=== PATIENT | female | born 1940 | race Caucasian/White ===

== ENCOUNTER 2017-06-26 13:18 | Outpatient (CLI) | payer MEDICARE, OTHER ==
--- NOTE | 2017-06-27 15:39 | Mammography Report ---
DIGITAL SCREENING MAMMOGRAM: 06/26/2017 CLINICAL INDICATION: A 76-year-old, for screening. COMPARISON: 09/2014, 03/2012, 05/2009. TECHNIQUE: Routine CC and MLO projections were obtained of the breasts. FINDINGS: The breasts again demonstrate heterogeneously dense fibroglandular parenchyma bilaterally. Coarse and punctate, typically benign calcifications are present. No suspicious masses, clustered microcalcifications, or regions of architectural distortion are identified. IMPRESSION: BENIGN FINDINGS. RECOMMENDATION: ROUTINE ANNUAL SCREENING UNLESS OTHERWISE CLINICALLY INDICATED. BIRADS CATEGORY 2-BENIGN FINDINGS. STANDARD QUALIFYING STATEMENTS: 1. This examination was reviewed with the aid of Computer-Aided Detection (CAD). 2. A negative or benign imaging report should not delay biopsy if clinically suspicious findings are present. Consider surgical consultation if warranted. More than 5% of cancers are not identified by imaging. 3. Dense breasts may obscure an underlying neoplasm. TD: 06/27/2017 15:39
== END 2017-06-26 13:19 | disposition home or self-care (01) ==
LOC: DI 13:18
PROVIDERS: ATTEND Internal Medicine
DX: Z12.31 Encounter for screening mammogram for malignant neoplasm of breast (principal)
CPT/HCPCS: 77067

== ENCOUNTER 2017-07-02 09:36 | Outpatient (CLI) | payer MEDICARE, OTHER ==
--- NOTE | 2017-07-02 12:59 | XRAY Report ---
LEFT HIP AND PELVIS: 07/02/2017 CLINICAL INDICATION: Pain. FINDINGS: Frontal view of the hips and pelvis and frogleg lateral view of the left hip demonstrate no evidence of fracture or dislocation. The joint spaces are preserved. No radiopaque foreign body is seen in the soft tissues. IMPRESSION: NORMAL LEFT HIP AND PELVIS. TD: 07/02/2017 12:58
== END 2017-07-02 09:37 | disposition home or self-care (01) ==
LOC: DI 09:36
PROVIDERS: ATTEND Internal Medicine
DX: R10.2 Pelvic and perineal pain (principal)

== ENCOUNTER 2017-08-07 06:58 | Day surgery (SDC) | payer MEDICARE, OTHER ==
[~2017-08-07 06:58] MED LIST: CYCLOPENTOLATE 1% OPHTH DROPS 2 ML ONE; KETOROLAC 0.45% OPHTH DROPS ONE; PHENYLEPHRINE 2.5% OPHTH 2 ML DROPS ONE; PROPARACAINE 0.5% OPHTH DROPS 15 ML ONE
[2017-08-07] MEDS ORDERED: KETOROLAC 0.45% OPHTH DROPS RIGHTEYE ONE (07:12)
[2017-08-07] MEDS ORDERED: PROPARACAINE 0.5% OPHTH DROPS 15 ML RIGHTEYE ONE ×2 (07:13→08:21)
[2017-08-07] MEDS ORDERED: CYCLOPENTOLATE 1% OPHTH DROPS 2 ML RIGHTEYE ONE (07:14)
[2017-08-07] MEDS ORDERED: PHENYLEPHRINE 2.5% OPHTH 2 ML DROPS RIGHTEYE ONE (07:14)
[2017-08-07] MEDS ORDERED: BRIMONIDINE 0.2% OPHTH DROPS 5 ML ONE (07:21)
[2017-08-07] MEDS ORDERED: TIMOLOL 0.5% OPHTH DROPS ONE (07:21)
[2017-08-07] MEDS ORDERED: BSS/LIDOCAINE/EPINEPHRINE 1 ML SYRINGE ONE (07:22)
[2017-08-07] MEDS ORDERED: LACTATED RINGERS 1,000 ML IV ONE (07:24)
[2017-08-07] MEDS ORDERED: MIDAZOLAM 2 MG/2 ML VIAL IVP ONE (08:05)
[2017-08-07] MEDS ORDERED: BRIMONIDINE 0.2% OPHTH DROPS 5 ML OPTH ONE (08:19)
[2017-08-07] MEDS ORDERED: EPINEPHrine 1 MG/ML AMP IR ONE (08:20)
[2017-08-07] MEDS ORDERED: TIMOLOL 0.5% OPHTH DROPS OPTH ONE (08:20)
[2017-08-07] MEDS ORDERED: CHONDR SULF/HYALURONATE SYRINGE IO ONE (08:20)
[2017-08-07] MEDS ORDERED: BSS/LIDOCAINE/EPINEPHRINE 1 ML SYRINGE IO ONE (08:20)
[2017-08-07] MEDS ORDERED: TRIAMCIN/MOXIFLOX/VANCO 1 ML VIAL IO ONE (08:21)
--- NOTE | 2017-08-07 08:54 | OPERATIVE REPORT ---
DATE OF SERVICE: 08/07/2017 Physician: Kevin Lindo MD PREOPERATIVE DIAGNOSIS: Visually significant cataract, right eye. This was her first cataract surgery. POSTOPERATIVE DIAGNOSIS: Visually significant cataract, right eye. This was her first cataract surgery. NAME OF PROCEDURE: Phacoemulsification with posterior chamber intraocular lens implant, right eye. SURGEON: Kevin Lindo MD ANESTHESIA: Monitored anesthesia care. COMPLICATIONS: None. OPERATIVE INDICATIONS: This is a 76-year-old woman with progressive vision loss in the right eye due to 2+ nuclear sclerotic, 2 to 3+ cortical and trace posterior subcapsular cataract. Best corrected visual acuity was 20/25 with glare to 20/100 in the right eye. Indications for surgery were difficulty seeing words on the computer screen, difficulty reading, difficulty seeing street signs, difficulty driving in bright light or at night, difficulty driving at night because of headlights from other vehicles and/or street lights. She was consented at length concerning the risks and benefits of cataract surgery, after which she expressed a desire to proceed with surgery. OPERATIVE PROCEDURE: Patient was taken into OR #3 and placed under monitored anesthesia care. A surgical timeout was conducted confirming correct patient, correct procedure and correct surgical site. She was given topical anesthesia, and then prepped and draped in the usual sterile fashion. The eye was entered at the 12 and 9 o'clock positions. Intracameral Shugarcaine was injected into the anterior chamber, followed by Viscoat. A continuous-tear curvilinear capsulorrhexis was performed. The nucleus was hydrodissected and phacoemulsified. The cortex was evacuated using automated infusion and aspiration. Provisc was injected in the capsular bag and a 23.0 diopter intraocular lens was inserted into the bag, approximately 0.8 mL of a mixture of triamcinolone and moxifloxacin was injected subconjunctivally in the superior quadrant for infection and inflammation prophylaxis. I and A was used to evacuate the viscoelastic material. The eye was inflated to physiologic pressure using balanced salt solution and found to be watertight. Patient was taken from the operating room in good condition and given postop instructions. TD: 08/07/2017 08:52
[2017-08-07 08:59] VITALS: BP 121/54
== END 2017-08-07 06:59 | disposition home or self-care (01) ==
LOC: SDS 06:58
PROVIDERS: ATTEND Ophthalmology
PROC: 08RJ3JZ Replacement of Right Lens with Synthetic Substitute, Percutaneous Approach (ICD-10-PCS; principal; 2017-08-07 08:00)
DX: H25.811 Combined forms of age-related cataract, right eye (principal)
CPT/HCPCS: 66984; A9270; J3490; J7120; V2632

== ENCOUNTER 2017-09-11 09:54 | Day surgery (SDC) | payer MEDICARE, OTHER ==
[~2017-09-11 09:54] MED LIST changes: +BRIMONIDINE 0.2% OPHTH DROPS 5 ML ONE; +BSS/LIDOCAINE/EPINEPHRINE 1 ML SYRINGE ONE; +EPINEPHrine 1 MG/ML AMP ONE; +TIMOLOL 0.5% OPHTH DROPS ONE; +TRIAMCIN/MOXIFLOX OPHTHALMIC 0.6 ML VIAL IO ONE
[2017-09-11] MEDS ORDERED: LACTATED RINGERS 500 ML IV ONE ×2 (10:10→11:18)
[2017-09-11] MEDS ORDERED: PROPARACAINE 0.5% OPHTH DROPS 15 ML LEFTEYE ONE ×2 (10:20→11:20)
[2017-09-11] MEDS ORDERED: KETOROLAC 0.45% OPHTH DROPS LEFTEYE ONE (10:20)
[2017-09-11] MEDS ORDERED: PHENYLEPHRINE 2.5% OPHTH 2 ML DROPS LEFTEYE ONE (10:20)
[2017-09-11] MEDS ORDERED: CYCLOPENTOLATE 1% OPHTH DROPS 2 ML LEFTEYE ONE (10:20)
[2017-09-11] MEDS ORDERED: MIDAZOLAM 2 MG/2 ML VIAL IVP ONE (11:11)
[2017-09-11] MEDS ORDERED: VANCOMYCIN OPHTHALMI 8MG/0.8ML 8 MG/0.8 ML SYRINGE IO ONE (11:20)
[2017-09-11] MEDS ORDERED: TIMOLOL 0.5% OPHTH DROPS OPTH ONE (11:20)
[2017-09-11] MEDS ORDERED: CHONDR SULF/HYALURONATE SYRINGE IO ONE (11:20)
[2017-09-11] MEDS ORDERED: BRIMONIDINE 0.2% OPHTH DROPS 5 ML OPTH ONE (11:20)
[2017-09-11] MEDS ORDERED: BSS/LIDOCAINE/EPINEPHRINE 1 ML SYRINGE IO ONE (11:20)
[2017-09-11] MEDS ORDERED: EPINEPHrine 1 MG/ML AMP IR ONE (11:20)
[2017-09-11 11:39] VITALS: BP 120/53
--- NOTE | 2017-09-11 17:07 | OPERATIVE REPORT ---
DATE OF SERVICE: 09/11/2017 Physician: Kevin Lindo MD PREOPERATIVE DIAGNOSIS: Visually significant cataract, left eye. Cataract surgery was performed on the right eye on 08/07/2017. POSTOPERATIVE DIAGNOSIS: Visually significant cataract, left eye. Cataract surgery was performed on the right eye on 08/07/2017. PROCEDURE: Phacoemulsification with posterior chamber intraocular lens implant, left eye. SURGEON: Kevin Lindo MD ANESTHESIA: Monitored anesthesia care. COMPLICATIONS: None. OPERATIVE INDICATIONS: This is a 71-year-old woman with progressive vision loss in the left eye due to 2+ nuclear sclerotic, 3+ cortical and trace posterior subcapsular cataract. Best corrected visual acuity was 20/30 with glare to 20/200 in the left eye. Indications for surgery are overall decrease in vision, difficulty seeing words on the computer screen, difficulty reading, difficulty driving at night because of head lights from other vehicles, and difficulty with glare or bright lights in any situation. She was consented at length concerning the risks and benefits of cataract surgery. Afterward, she expressed a desire to proceed with surgery. OPERATIVE PROCEDURE: The patient was taken into OR #3 and placed under monitored anesthesia care. A surgical timeout was conducted confirming correct patient, correct procedure, and correct surgical site. She was given topical anesthesia and prepped and draped in the usual sterile fashion. The eye was entered at the 6 and 3 o'clock positions. Intracameral Shugarcaine was injected into the anterior chamber, followed by Viscoat. A continuous-tear curvilinear capsulorrhexis was performed. The nucleus was hydrodissected and phacoemulsified. The cortex was evacuated using automated infusion aspiration. Provisc was injected in the capsular bag and a 22.5 diopter intraocular lens was inserted into the bag. Approximately 0.8 mL of a mixture of triamcinolone and moxifloxacin and vancomycin was injected subconjunctivally in the superior quadrant for infection and inflammation prophylaxis. I and A was used to evacuate the viscoelastic materials. The eye was inflated to physiologic pressure using balanced salt solution and found to be watertight. The patient was taken from the operating room in good condition and given postop instructions. TD: 09/11/2017 11:37
== END 2017-09-11 09:55 | disposition home or self-care (01) ==
LOC: SDS 09:54
PROVIDERS: ATTEND Ophthalmology
PROC: 08RK3JZ Replacement of Left Lens with Synthetic Substitute, Percutaneous Approach (ICD-10-PCS; principal; 2017-09-11 11:00)
DX: H25.812 Combined forms of age-related cataract, left eye (principal)
CPT/HCPCS: 66984; A9270; J3490; V2632

== ENCOUNTER 2018-01-10 13:43 | Emergency (ER) | payer MEDICARE, OTHER ==
[2018-01-10] MEDS ORDERED: BACITRACIN OINT TOP STA (14:23)
[2018-01-10] MEDS ORDERED: BACITRACIN OINT TOP ONE (14:24)
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
[2018-01-10 14:50] VITALS: BP 149/63
== END 2018-01-10 14:49 | disposition home or self-care (01) ==
LOC: ED 13:43
DX: T22.111A Burn of first degree of right forearm, initial encounter (principal); T31.0 Burns involving less than 10% of body surface; X10.1XXA Contact with hot food, initial encounter; Y93.G3 Activity, cooking and baking; Y92.009 Unspecified place in unspecified non-institutional (private) residence as the place of occurrence of the external cause
CPT/HCPCS: 99282; A9270

== ENCOUNTER 2018-04-04 07:44 | Outpatient (CLI) | payer MEDICARE, OTHER ==
--- NOTE | 2018-04-06 08:24 | CT Report ---
Reason: SINUS PAIN Procedure Date: 04/04/2018 Accession Number: [id number] / [id number] Procedure: CT - Sinuses CPT Code: FULL RESULT: EXAM: CT SINUS EXAM DATE: 04/04/2018 07:52 AM. HISTORY: 77-year-old woman with sinus pain. COMPARISONS: SINUSES 09/17/2013 8:24 AM. TECHNIQUE: Routine multi-axial CT imaging performed through the sinuses. Iodinated IV contrast: None. Reconstructions: Multiplanar reformats. In accordance with CT protocol optimization, one or more of the following dose reduction techniques were utilized for this exam: automated exposure control, adjustment of mA and/or KV based on patient size, or use of iterative reconstructive technique. FINDINGS: RIGHT Frontal: Normal. Ethmoid: Normal. Maxillary: Normal. Sphenoid: Normal. Drainage Pathways: The frontal recess, ostiomeatal complex and sphenoethmoidal recess are patent and normal. LEFT Frontal: Normal. Ethmoid: Normal. Maxillary: Normal. Sphenoid: Normal. Drainage Pathways: The frontal recess, ostiomeatal complex and sphenoethmoidal recess are patent and normal. Nasal Cavity: Normal. No mass or significant anatomic abnormality evident. Osseous Structures: Unremarkable. Orbits: Unremarkable except for bilateral lens replacement surgery. Other: None. IMPRESSION: 1. Normal Sinus CT. No sinusitis. RADIA
== END 2018-04-04 07:45 | disposition home or self-care (01) ==
LOC: DI 07:44
PROVIDERS: ATTEND Internal Medicine
DX: R51 Headache (principal); J34.9 Unspecified disorder of nose and nasal sinuses
CPT/HCPCS: 70486

== ENCOUNTER 2018-04-14 09:14 | Outpatient (CLI) | payer MEDICARE, OTHER ==
[2018-04-14] MEDS ORDERED: ACETAMINOPHEN 1,000 MG/100 ML 100 ML IV ONE (15:59)
== END 2018-04-14 09:15 | disposition critical access hospital (66) ==
LOC: EMS 09:14
PROVIDERS: ATTEND Surgery
DX: M25.552 Pain in left hip (principal); W01.0XXA Fall on same level from slipping, tripping and stumbling without subsequent striking against object, initial encounter; Y93.A3 Activity, aerobic and step exercise; Y92.39 Other specified sports and athletic area as the place of occurrence of the external cause
CPT/HCPCS: A0425; A0427

== ENCOUNTER 2018-04-14 09:39 | Inpatient (IN) | payer MEDICARE, OTHER ==
--- NOTE | 2018-04-14 09:49 | ED Physician Documentation ---
History of Present Illness - Stated complaint Stated Complaint: L HIP PX - Additonal information Additional information: hx from pt 77 female healthy no meds was at [facility] and slipped and fell on her left hip no head or neck injury no CP or AP pain to left hip and not able to walk BIBA Review of Systems Cardiac: denies: Chest pain / pressure GI: denies: Abdominal Pain Musculoskeletal: reports: Joint pain. 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 HEENT: Cataracts - Present Medications Home Medications: Ambulatory Orders Medication Instructions Recorded Confirmed Multivitamin [Multiple Vitamins] 1 tab PO DAILY 04/14/18 04/14/18 - Allergies Allergies/Adverse Reactions: Allergies Allergy/AdvReac Type Severity Reaction Status Date / Time No Known Drug Allergies Allergy Verified 04/14/18 09:50 - Social History Does the pt smoke?: No Smoking Status: Never smoker Does the pt drink ETOH?: No Does the pt have substance abuse?: No - Immunizations Immunizations are current?: Yes PD ED PE NORMAL - Vitals Vital signs reviewed: Yes - General General: Alert and oriented X 3 - HEENT HEENT: Atraumatic - Neck Neck: No bony TTP - Cardiac Cardiac: RRR - Respiratory Respiratory: No respiratory distress, Clear bilaterally - Abdomen Abdomen: Non tender - Derm Derm: Normal color - Extremities Extremities: Other (TTP lateral left hip prefers to keep hip felxed at 45 deg [place], not short or roatated, MSV intact) Results - Vitals Vitals: Vital Signs - 24 hr 04/14/18 09:40 Temperature 36.3 C L Heart Rate 87 Respiratory 18 Rate Blood Pressure 170/82 H O2 Saturation 100 Oxygen O2 Source Room air - EKG (time done) 1133 Rate: Rate (enter#) (85) Rhythm: NSR [place]: Normal Intervals: Normal VA QRS: Normal Ischemia: Normal ST segments - Labs Labs: Laboratory Tests 04/14/18 04/14/18 11:38 11:38 WBC 19.6 H RBC 4.72 Hgb 13.7 Hct 40.7 MCV 86.2 MCH 29.1 MCHC 33.8 RDW 14.0 Plt Count 303 MPV 7.2 L Neut # (Auto) 17.3 H Lymph # (Auto) 1.2 L Clay # (Auto) 1.0 Eos # (Auto) 0.0 Baso # (Auto) 0.1 Absolute Nucleated RBC 0.01 Nucleated RBC % 0.1 Sodium 135 Potassium 4.0 Chloride 100 L Carbon Dioxide 27 Anion Gap 8.0 BUN 16 Creatinine 0.7 Estimated GFR (MDRD) 81 L Glucose 98 Calcium 9.2 - Rads (name of study) hip Radiology: See rad report (intertroch fx) PD MEDICAL DECISION MAKING - ED course ED course: [facility] and hospitalist at noon pt NPO since 6 AM - hopefully can have surgery today pt offered pain meds - still well controlled after fentanyl from EMS Departure - Departure Disposition: 66 [facility] DC/Xfer Clinical Impression: Hip fracture Qualifiers: Encounter type: initial encounter Fracture type: closed Laterality: right Qualified Code(s): S72.001A - Fracture of unspecified part of neck of right femur, initial encounter for closed fracture
--- NOTE | 2018-04-14 11:04 | XRAY Report ---
Reason: fall L hip pain Procedure Date: 04/14/2018 Accession Number: [id number] / [id number] Procedure: XR - Hip w/Pelvis 2-3V LT CPT Code: FULL RESULT: EXAM: LEFT HIP AND PELVIS RADIOGRAPHY EXAM DATE: 04/14/2018 10:42 AM. HISTORY: Fall left hip pain. COMPARISONS: Hip w/pelvis 2-3v left 07/02/2017 10:27 AM. TECHNIQUE: 1 view of the pelvis and 1 view of the hip. FINDINGS: Bones: Intertrochanteric left hip fracture. Joints: The bilateral hip, pubis symphysis, and sacroiliac joints are preserved. Soft Tissues: Normal. No soft tissue swelling. IMPRESSION: Intertrochanteric left hip fracture. RADIA The above findings of intertrochanteric fracture were discussed with Gavi Oneal by Dr. Ben Keller at 11:02 hrs on 04/14/18.
[2018-04-14 11:51] LABS: BASOPHILS # (AUTO) 0.1 10^3/uL (0.0-0.1); BASOPHILS % (AUTO) 0.3 %; EOSINOPHILS % (AUTO) 0.3 %; HGB - HEMOGLOBIN 13.7 g/dL (12.0-16.0); LYMPHOCYTES # (AUTO) 1.2 10^3/uL (1.5-3.5); LYMPHOCYTES % (AUTO) 6.3 %; MEAN CORPUSCULAR HEMOGLOBIN 29.1 pg (27.0-31.0); MEAN CORPUSCULAR HGB CONC 33.8 g/dL (32.0-36.0); MEAN CORPUSCULAR VOLUME 86.2 fL (81.0-99.0); MEAN PLATELET VOLUME 7.2 fL (7.9-10.8); MONOCYTES % (AUTO) 4.9 %; NEUTROPHILS # (AUTO) 17.3 10^3/uL (1.5-6.6); NEUTROPHILS % (AUTO) 88.2 %; PLT - PLATELET COUNT 303 10^3/uL (130-450); RED BLOOD COUNT 4.72 10^6/uL (4.20-5.40); WHITE BLOOD COUNT 19.6 x10^3/uL (4.8-10.8)
[2018-04-14 12:07] LABS: CALCIUM 9.2 mg/dL (8.5-10.3); CREATININE 0.7 mg/dL (0.4-1.0)
[2018-04-14] MEDS ORDERED: SODIUM CHLORIDE FLUSH 0.9% 10 ML SYRINGE IVP PRN (12:38)
[2018-04-14] MEDS ORDERED: ONDANSETRON ODT 4 MG TABLET TL PRN ×2 (12:38→18:51)
[2018-04-14] MEDS ORDERED: ONDANSETRON 4 MG/2 ML VIAL IVP PRN (12:38)
[2018-04-14] MEDS ORDERED: MORPHINE 2 MG/ML CARPUJECT IVP PRN ×2 (12:38→18:51)
--- NOTE | 2018-04-14 12:50 | HISTORY & PHYSICAL EXAMINATION ---
Chief Complaint - Chief Complaint Chief Complaint: fall at [employer] w leg pain History of Present Illness - Admitted From Admitted From:: ER/Home - History Obtained From Records Reviewed: [facility] History obtained from: Patient and Dr. Jacobs Exam Limitations: none - History of Present Illness HPI Comment/Other: This is a 77-year-old female who still lives independently. Exercises doing [employer] class. Also walks about 6 miles every day. She has no major past medical history. She has no problems with high blood pressure, diabetes, history of arrhythmia, history of TIA, does not smoke, rarely drinks, negative family history. While at [employer] today she fell. She has an intratrochanteric left hip fracture. A bone density survey done April 2013 shows her to have lumbar region having a T score of -2.6-2.8. Her femoral neck was -2.4 but the total hip score was -1.4. She actually been gaining bone density since 2004. In 2004 her T score was -3.7 in her spine. She had increased by 16.5% by 2013. She did have a bone density done October 2015. They did not take into account her previous bone density scans. At that time her lumbar region had a highest T score of - 3.2 with a total score of -2.0. Femoral neck was -2.5 and total score was -2.1. She takes a multivitamin on a daily basis. She is now admitted to the hospitalist service. Orthopedics cupola operator insulation is Dr. Eaton. He will be seeing the patient in consultation. History - Past Medical History Cardiovascular: reports: None Respiratory: reports: None Neuro: reports: None Endocrine/Autoimmune: reports: None GI: reports: None VP SOFTWARE SUPPORT: reports: Other (. 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 Left eye c ataract September 2017.) - Family & Social History Family History Comment/Other: Dad at 83 of "old age". Mom at age 22. She in childbirth delivering this patient and her twin sister. One brother of a heart attack, and had PTSD after [place]. Her twin sister is completely healthy. 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 She was for 53 years. Her 3 years ago. She is still grieving. She never smoked. She rarely drinks alcohol. She has no history of any other recreational substance abuse. - Substance History Use: Uses substance without health or social issues: NONE Abuse: Recurrent use of substance despite neg consequences: NONE Dependence: Experiences withdrawal or developed tolerances: NONE - POLST Patient has POLST: No POLST Status: Full Code Meds/Allgy - Home Medications Home Medications: Ambulatory Orders Medication Instructions Recorded Confirmed Multivitamin [Multiple Vitamins] 1 tab PO DAILY 04/14/18 04/14/18 - Allergies Allergies/Adverse Reactions: Allergies Allergy/AdvReac Type Severity Reaction Status Date / Time No Known Drug Allergies Allergy Verified 04/14/18 09:50 Review of Systems - Constitutional Constitutional: denies: Fatigue, Fever, Chills, Malaise, Weakness, Poor appetite, Weight gain, Weight loss - Eyes Eyes: denies: Pain, Irritation, Amaurosis, Blurred vision, Spots in vision, Field loss, Vision loss - Ears, Nose & Throat Ears, Nose & Throat: denies: Ear pain, Hearing loss, Hearing aids, Vertigo, Nasal pain, Nasal obstruction, Nasal congestion, Sore throat - Cardiovascular Cariovascular: denies: Irregular heart rate, Palpitations, Chest pain, Edema, Lightheadedness, Syncope, Exertional dyspnea, Decr. exercise tolerance - Respiratory Respiratory: denies: Cough, Sputum production, Wheezing, SOB at rest, SOB with exertion - Gastrointestinal Gastrointestinal: denies: Abdominal pain, Abdominal distention, Constipation, Diarrhea, Change in bowel habits, Bloody stools - Genitourinary Genitourinary: denies: Dysuria, Frequency, Urgency, Hematuria, Incontinence, Flank pain - Musculoskeletal Musculoskeletal: denies: Muscle pain, Back pain, Muscle aches, Stiffness, Gout, Joint pain - Integumentary Integumentary: denies: Rash, Pruritis, Lesions, Acne - Neurological Neurological: denies: General weakness, Focal weakness, Headache, Dizziness, Memory problems, Pre-existing deficit - Psychiatric Psychiatric: reports: Depression (from grieving for even though it's been 3 years.). denies: Anxiety, Suicidal, Delusions, Hallucinations, Homicidal - Endocrine Endocrine: denies: Polyuria, Polydypsia, Polyphagia - Hematologic/Lymphatic Hematologic/Lymphatic: denies: Anemia, Bruising, Petechiae Prior Level of Functionality: Active elderly female. . Still lives in her own home. Drives a car. Cleans her own house. Exercises on a daily basis. She walks 6 miles a day. Does [employer] several times a week.Pays her own bills. Exam - Vital Signs Reviewed Vital Signs: Yes Vital Signs: Vital Signs x48h Temp Pulse Resp BP Pulse Ox 04/14/18 09:40 36.3 C L 87 18 170/82 H 100 - Physical Exam General Appearance: positive: No acute distress, Alert, Other (Slender, well- nourished well-developed female who looks younger than stated age) Eyes Bilateral: positive: PERRL, EOMI ENT: positive: Pharynx nml. negative: Dry mucous membranes Neck: positive: No JVD. negative: Stiff neck, Carotid bruit Respiratory: positive: Chest non-tender. negative: Wheezes, Rales, Rhonchi Cardiovascular: positive: Regular rate & rhythm. negative: Systolic murmur, Gallop/S4, Friction rub Peripheral Pulses: positive: 1+ Abdomen: positive: Non-tender, No organomegaly, Nml bowel sounds, No distention Skin: positive: Warm, Dry Extremities: positive: Full ROM (Except for the hip that is fractured), Nml appearance (Except for the hip this fracture), No pedal edema Neurologic/Psychiatric: positive: Oriented x3, CN's nml (2-12), Motor nml, Sensation nml Reflexes: Bicep (R): 1+, Bicep (L): 1+, Knee (R): 1+, Knee (L): 1+, Ankle (R): 1+, Ankle (L): 1+ Babinski Reflex: Right: Down, Left: Down Conclusion/Plan - Problem List (1) Fracture, intertrochanteric, left femur Conclusion/Plan: Suffered as a consequence of a mechanical fall. No neurologic or cardiac symptoms prior to event. Plan: Acute inpatient stay greater than 2 midnights Orthopedic consult with Dr. Eaton N.p.o. status until decision for surgery PT and OT for after surgery Qualifiers: Encounter type: initial encounter (2) Pre-operative cardiovascular examination Conclusion/Plan: This amy female does not have a history of ischemic heart disease, congestive heart failure, cerebrovascular disease, insulin therapy, or creatinine greater than 2. This is not a high risk surgery and that it is not intraperitoneal, intrathoracic or suprainguinal vascular. This leaves her with a revised cardiac index for preoperative risk at 0 points, class I risk, 0.4% risk of major cardiac event. (3) Osteoporosis Conclusion/Plan: On her medication list for her cataracts in the summer 2017 she was on estradiol. We will make sure her medication reconciliation is correct. Plan: Continue calcium and vitamin D Consider starting Fosamax Qualifiers: Osteoporosis type: age-related Presence of current pathological fracture: with current pathological fracture Encounter type: initial encounter Qualified Code(s): M80.00XA - Age-related osteoporosis with current pathological fracture, unspecified site, initial encounter for fracture (4) Elevated white blood cell count Conclusion/Plan: Mild neutrophilia with this. Will check urinalysis, and chest x-ray. She does not have a fever. She did have a CT of the sinuses done April 03 because of sinus pain and there was no sinusitis. Qualifiers: Leukocytosis type: unspecified Qualified Code(s): D72.829 - Elevated white blood cell count, unspecified - Lab Results Lab results reviewed: Yes Fish Bones: 04/14/18 11:38 04/14/18 11:38 - Diagnostic Imaging Results Diagnostic Imaging Results: positive: Final report reviewed Diagnostic Imaging Results Comments: LEFT HIP AND PELVIS RADIOGRAPHY EXAM DATE: 04/14/2018 10:42 AM. HISTORY: Fall left hip pain. COMPARISONS: Hip w/pelvis 2-3v left 07/02/2017 10:27 AM. TECHNIQUE: 1 view of the pelvis and 1 view of the hip. FINDINGS: Bones: Intertrochanteric left hip fracture. Joints: The bilateral hip, pubis symphysis, and sacroiliac joints are preserved. Soft Tissues: Normal. No soft tissue swelling. IMPRESSION: Intertrochanteric left hip fracture. Core Measures - Anticipated LOS I expect patient to be DC'd or transferred within 96 hours.: Yes - DVT/VTE - Prophylaxis VTE/DVT Device ordered at admit?: Yes
[2018-04-14] MEDS ORDERED: SODIUM CHLORIDE 0.9% 1,000 ML IV SCH (13:00)
--- NOTE | 2018-04-14 13:23 | ANESTHESIA ---
Pre-Anesthesia VS, & Labs - Diagnosis left intertrocanteric hip fracture - Procedure left hip nailing Vital Signs: Temp Pulse Resp BP Pulse Ox 36.3 C L 91 16 125/67 97 04/14/18 09:40 04/14/18 13:00 04/14/18 13:00 04/14/18 13:00 04/14/18 13:00 Height 5 ft 3 in Weight (kg) 51.71 kg Body Mass Index 20.2 - NPO >8 hours - Is Patient ?: Not Applicable - Lab Results Current Lab Results: Laboratory Tests 04/14/18 11:38: Blood Type B POSITIVE, Antibody Screen NEGATIVE 04/14/18 11:38: Sodium 135, Potassium 4.0, Chloride 100 L, Carbon Dioxide 27, Anion Gap 8.0, BUN 16, Creatinine 0.7, Estimated GFR (MDRD) 81 L, Glucose 98, Calcium 9.2 04/14/18 11:38: WBC 19.6 H, RBC 4.72, Hgb 13.7, Hct 40.7, MCV 86.2, MCH 29.1, MCHC 33.8, RDW 14.0, Plt Count 303, MPV 7.2 L, Neut # (Auto) 17.3 H, Lymph # (Auto) 1.2 L, Millard # (Auto) 1.0, Eos # (Auto) 0.0, Baso # (Auto) 0.1, Absolute Nucleated RBC 0.01, Nucleated RBC % 0.1 Fish Bones: 04/14/18 11:38 04/14/18 11:38 Home Medications and Allergies Active Medications Sodium Chloride (Normal Saline 0.9%) 1,000 mls @ 100 mls/hr IV .Q10H MEREDITH Morphine Sulfate (Morphine (Carpuject)) 2 mg IVP Q2HR PRN PRN Reason: Pain 8 to 10 Ondansetron HCl (Zofran Inj) 4 mg IVP Q6HR PRN PRN Reason: Nausea / Vomiting Ondansetron HCl (Zofran Odt) 4 mg TL Q6HR PRN PRN Reason: Nausea / Vomiting Polyethylene Glycol (Miralax) 17 gm PO DAILY MEREDITH Sodium Chloride (Normal Saline Flush 0.9%) 10 ml IVP PRN PRN PRN Reason: NEEDED PER PROVIDER ORDERS Sodium Chloride (Normal Saline Flush 0.9%) 10 ml IVP 0100,0900,1700 [facility] Multivitamin [Multiple Vitamins] 1 tab PO DAILY 04/14/18 Allergies/Adverse Reactions: Allergies Allergy/AdvReac Type Severity Reaction Status Date / Time No Known Drug Allergies Allergy Verified 04/14/18 09:50 Anes History & Medical History - Anesthetic History Anesthesia Complications: reports: No previous complications Family history of Anesthesia Complications: Denies Family history of Malignant Hyperthermia: Denies - Medical History Cardiovascular: reports: None Pulmonary: reports: None Gastrointestinal: reports: None Urinary: reports: Kidney stones Neuro: reports: None Musculoskeletal: reports: Osteoarthritis Endocrine/Autoimmune: reports: None Blood Disorders: reports: None Skin: reports: None Smoking Status: Never smoker - Surgical History Eyes Ears Nose Throat (EENT): Cataracts (Right eye cataract was done August 2017. Left eye cataract September 2017.) Urologic: Ureterolithotomy (stones) Gynecologic: Hysterectomy Exam General: Alert, Oriented x3, Cooperative, No acute distress Dental: Other (bridges, caps) Mouth Openin Fingerbreadth Neck Mobility: Normal Mallampati classification: II Thyromental Distance: greater than 6 cm Respiratory: Lungs clear, Normal breath sounds, No respiratory distress, No accessory muscle use Cardiovascular: Regular rate, Normal S1, Normal S2, No murmurs Mental/Cognitive Status: Alert/Oriented X3, Normal for patient Plan Anesthesia Type: General Consent for Procedure(s) Verified and Reviewed: No Code Status: Attempt Resuscitation ASA classification: 2-Mild systemic disease Is this case an emergency?: No
[2018-04-14] MEDS ORDERED: BUPIVACAINE 0.25%-EPI 1:200000 PF 30 ML VIAL ONE ×2 (13:32→13:40)
[2018-04-14] MEDS ORDERED: LACTATED RINGERS 1,000 ML IV ONE ×3 (14:20→16:45)
[2018-04-14] MEDS ORDERED: ceFAZolin 1 GM VIAL ONE (14:29)
--- NOTE | 2018-04-14 15:50 | OPERATIVE REPORT ---
Operative Report - General Admit Date: 04/14/18 Procedure Date: 04/14/18 Planned Procedure: IM rodding of left femur Pre-Op Diagnosis: Intertrochanteric femur fracture left Procedure Performed: Im rodding of left femur IT fracture Post Op Diagnosis: same - Procedure Note Primary Surgeon: mikala Anesthesia Provider: Antoine Anesthesia Technique: General ET tube Estimated Blood Loss (mL): 80
[2018-04-14] MEDS: fentaNYL 100 MCG/2 ML VIAL ONE ×4 (15:53→16:20)
[2018-04-14] MEDS ORDERED: KETOROLAC 30 MG/ML VIAL IVP PRN (15:56)
[2018-04-14] MEDS ORDERED: PHENYLEPHRINE 50 MG/5 ML VIAL IV ONE (15:56)
[2018-04-14] MEDS ORDERED: PROPOFOL 200 MG/20 ML VIAL IVP ONE (15:56)
[2018-04-14] MEDS ORDERED: fentaNYL 100 MCG/2 ML VIAL IVP ONE (15:56)
[2018-04-14] MEDS ORDERED: ACETAMINOPHEN 1,000 MG/100 ML 100 ML IV ONE (15:59)
[2018-04-14] MEDS: HYDROmorphone 1 MG/ML CARPUJECT ONE ×2 (16:05→16:10)
[2018-04-14] MEDS ORDERED: MEPERIDINE 50 MG/ML VIAL ONE (16:05)
[2018-04-14] MEDS ORDERED: ONDANSETRON 4 MG/2 ML VIAL ONE (16:31)
[2018-04-14] MEDS ORDERED: SODIUM CHLORIDE FLUSH 0.9% 10 ML SYRINGE IVP SCH (17:00)
[2018-04-14] MEDS: SODIUM CHLORIDE 0.9% 1,000 ML IV SCH (19:39)
[2018-04-14] MEDS: ceFAZolin 1 GM in SODIUM CHLORIDE 0.9% MINIBAG 100 ML IV SCH (21:40)
[2018-04-14] MEDS: KETOROLAC 30 MG/ML VIAL IVP PRN (21:41)
[2018-04-14] MEDS ORDERED: ceFAZolin 1 GM in SODIUM CHLORIDE 0.9% MINIBAG 100 ML IV SCH (22:00)
[2018-04-14] MEDS ORDERED: FAMOTIDINE 20 MG TABLET PO SCH (22:00)
[2018-04-14] MEDS: ONDANSETRON 4 MG/2 ML VIAL IVP PRN (23:12)
--- NOTE | 2018-04-15 03:19 | OPERATIVE REPORT ---
DATE OF SERVICE: 04/14/2018 Physician: Cam Yun MD PREOPERATIVE DIAGNOSIS: Minimally displaced left intertrochanteric fracture. POSTOPERATIVE DIAGNOSIS: Minimally displaced left intertrochanteric fracture. PROCEDURE PERFORMED: Left intramedullary femoral rodding for an intertrochanteric fracture. OPERATING SURGEON: Jean-Pierre Yun MD ANESTHESIA: General by Sugey Mack CRNA INDICATIONS FOR SURGERY: The patient is a 77-year-old female who suffered a fall and a twisting inju ry of her hip while doing [employer] at a [facility] today. She had been n.p.o. Her injury rendered her unable to stand and ambulate and she had hip pain. She presented with a minimally displaced intertro chanteric hip fracture. Recommendation was made for surgical repair. DESCRIPTION OF OPERATIVE PROCEDURE: The patient was taken to the operating room. After surgical con sent was obtained, she was placed supine on the fracture table and given general anesthetic. She was positioned then in traction on the left lower extremity and flexion on a bolster on the right knee. Very careful padding all sides and placing the left limb under traction slightly, C-arm images were obtained, confirming adequate positioning and imaging for the surgery. The surgical timeout was held after a sterile prep and drape. The incision was made just above the tip of the trochanter, 2 inche s and transverse. Entry was made down to the tip of the trochanter, which was found to have comminut ed fracture lines and ultimately the chilango settled. The guide chilango was sent down one of these comminute d fracture lines after enlarging the entry and reaming the femoral canal to the knee with sequential reamers up to 11 mm. It was elected to use a 38 cm length, 10 mm Shamir chilango, which was inserted by h and down to its proper location, and then appropriate proximal drill guide was used to place a lag sc rew into the femoral neck and head of appropriate length, 85 mm. This was locked into position from proximal and gave good rendering of stability, and on C-arm images, the fracture had slightly displac ed due to widening proximally of comminuted fragments, but it was felt to be acceptable and would pr oceed most likely to excellent union. The wounds were irrigated. Closure was with interrupted Vicry l closure in the deep fascial rents followed by interrupted Vicryl closure subcutaneous and sterile d ressings applied over the top of this. Infiltration was placed into the hip joint area with Marcaine with epinephrine. The patient was then taken out of traction off the fracture table onto a hospital bed in stable condition. ESTIMATED BLOOD LOSS: About 80 mL COMPLICATIONS: None. COUNTS: Sponge and needle counts correct. IMPLANTS USED: Shamir Biomet intramedullary chilango, size 38 x 10 mm diameter, and a lag screw of 85 mm of length. TD: 04/14/2018 16:19
[2018-04-15 05:02] LABS: BASOPHILS % (AUTO) 0.2 %; EOSINOPHILS % (AUTO) 0.3 %; HGB - HEMOGLOBIN 9.9 g/dL (12.0-16.0); LYMPHOCYTES # (AUTO) 1.1 10^3/uL (1.5-3.5); LYMPHOCYTES % (AUTO) 9.8 %; MEAN CORPUSCULAR HEMOGLOBIN 28.9 pg (27.0-31.0); MEAN CORPUSCULAR HGB CONC 32.9 g/dL (32.0-36.0); MEAN CORPUSCULAR VOLUME 87.9 fL (81.0-99.0); MEAN PLATELET VOLUME 7.5 fL (7.9-10.8); MONOCYTES % (AUTO) 9.4 %; NEUTROPHILS # (AUTO) 8.9 10^3/uL (1.5-6.6); NEUTROPHILS % (AUTO) 80.3 %; PLT - PLATELET COUNT 212 10^3/uL (130-450); RED BLOOD COUNT 3.43 10^6/uL (4.20-5.40); RED CELL DISTRIBUTION WIDTH 13.7 % (12.0-15.0); WHITE BLOOD COUNT 11.1 x10^3/uL (4.8-10.8)
[2018-04-15 05:17] LABS: CALCIUM 7.8 mg/dL (8.5-10.3); CREATININE 0.7 mg/dL (0.4-1.0)
[2018-04-15] MEDS: ceFAZolin 1 GM in SODIUM CHLORIDE 0.9% MINIBAG 100 ML IV SCH ×3 (06:16→21:47)
[2018-04-15] MEDS: SODIUM CHLORIDE 0.9% 1,000 ML IV SCH ×2 (06:16→17:43)
[2018-04-15] MEDS: PANTOPRAZOLE 40 MG TABLET PO SCH (06:17)
[2018-04-15] MEDS: SODIUM CHLORIDE FLUSH 0.9% 10 ML SYRINGE IVP SCH ×3 (06:17→16:58)
--- NOTE | 2018-04-15 07:55 | PROVIDER PROGRESS NOTE ---
Subjective - General Admit Date: 04/14/18 Procedure Date: 04/14/18 Post Op Days: 1 Procedure Performed: left femoral chilango for intertrochanteric fracture - Review of Systems Wound/Incisions: positive: Dressing dry and intact Musculoskeletal: positive: Joint pain, Joint swelling Psychiatric: positive: No symptoms Objective - Patient Data Reviewed Vital Signs: Yes Vital Signs: Vital Signs x48h Temp Pulse Resp BP Pulse Ox 04/15/18 05:02 76 16 111/49 L 97 04/15/18 04:00 36.8 C 71 16 110/50 L 98 04/15/18 02:09 76 16 105/57 L 96 04/15/18 00:00 36.7 C 80 15 94/53 L 97 Weight: Weight 04/13/18 04/14/18 04/15/18 23:59 23:59 23:59 Weight (kg) 51.71 kg Intake & Output: Intake and Output Totals x24h 04/13/18 04/14/18 04/15/18 23:59 23:59 23:59 Intake Total 100 1450 Output Total 240 210 Balance -140 1240 - Lab Results Lab Results: 04/15/18 04:25 04/15/18 04:25 Other Lab Results: Lab Results x24hrs 04/15/18 04/15/18 04/14/18 Range/Units 04:25 04:25 21:30 WBC 11.1 H (4.8-10.8) x10^3/uL RBC 3.43 L (4.20-5.40) 10^6/uL Hgb 9.9 L (12.0-16.0) g/dL Hct 30.2 L (37.0-47.0) % MCV 87.9 (81.0-99.0) fL MCH 28.9 (27.0-31.0) pg MCHC 32.9 (32.0-36.0) g/dL RDW 13.7 (12.0-15.0) % Plt Count 212 (130-450) 10^3/uL MPV 7.5 L (7.9-10.8) fL Neut # (Auto) 8.9 H (1.5-6.6) 10^3/uL Lymph # (Auto) 1.1 L (1.5-3.5) 10^3/uL Mora # (Auto) 1.0 (0.0-1.0) 10^3/uL Eos # (Auto) 0.0 (0.0-0.7) 10^3/uL Baso # (Auto) 0.0 (0.0-0.1) 10^3/uL Absolute Nucleated RBC 0.01 x10^3/uL Nucleated RBC % 0.0 /100WBC Sodium 137 (135-145) mmol/L Potassium 4.1 (3.5-5.0) mmol/L Chloride 104 (101-111) mmol/L Carbon Dioxide 26 (21-32) mmol/L Anion Gap 7.0 (6-13) BUN 16 (6-20) mg/dL Creatinine 0.7 (0.4-1.0) mg/dL Estimated GFR (MDRD) 81 L (>89) Glucose 114 H (70-100) mg/dL Calcium 7.8 L (8.5-10.3) mg/dL Troponin I < 0.04 (<0.49) ng/mL Blood Type Antibody Screen 04/14/18 04/14/18 04/14/18 Range/Units 11:38 11:38 11:38 WBC 19.6 H (4.8-10.8) x10^3/uL RBC 4.72 (4.20-5.40) 10^6/uL Hgb 13.7 (12.0-16.0) g/dL Hct 40.7 (37.0-47.0) % MCV 86.2 (81.0-99.0) fL MCH 29.1 (27.0-31.0) pg MCHC 33.8 (32.0-36.0) g/dL RDW 14.0 (12.0-15.0) % Plt Count 303 (130-450) 10^3/uL MPV 7.2 L (7.9-10.8) fL Neut # (Auto) 17.3 H (1.5-6.6) 10^3/uL Lymph # (Auto) 1.2 L (1.5-3.5) 10^3/uL Mora # (Auto) 1.0 (0.0-1.0) 10^3/uL Eos # (Auto) 0.0 (0.0-0.7) 10^3/uL Baso # (Auto) 0.1 (0.0-0.1) 10^3/uL Absolute Nucleated RBC 0.01 x10^3/uL Nucleated RBC % 0.1 /100WBC Sodium 135 (135-145) mmol/L Potassium 4.0 (3.5-5.0) mmol/L Chloride 100 L (101-111) mmol/L Carbon Dioxide 27 (21-32) mmol/L Anion Gap 8.0 (6-13) BUN 16 (6-20) mg/dL Creatinine 0.7 (0.4-1.0) mg/dL Estimated GFR (MDRD) 81 L (>89) Glucose 98 (70-100) mg/dL Calcium 9.2 (8.5-10.3) mg/dL Troponin I (<0.49) ng/mL Blood Type B POSITIVE Antibody Screen NEGATIVE - Imaging Results Radiology Imaging: positive: EMP read indepedently - Current Medications Current Medications: Current Medications Generic Name Dose Route Start Last Admin Trade Name Freq PRN Reason Stop Dose Admin Sodium Chloride 1,000 mls @ 100 mls/hr 04/14/18 19:00 04/15/18 06:16 Normal Saline 0.9% IV 100 mls/hr .Q10H MEREDITH Administration Cefazolin Sodium 1 gm/ Sodium 100 mls @ 200 mls/hr 04/14/18 22:00 04/15/18 07:18 Chloride IV Infused Q8H MEREDITH Infusion Ketorolac Tromethamine 30 mg 04/14/18 18:53 04/14/18 21:41 Toradol Inj (30mg) IVP 04/19/18 18:52 30 mg Q6HR PRN Administration PAIN Ondansetron HCl 4 mg 04/14/18 18:51 04/14/18 23:12 Zofran Inj IVP 4 mg Q6HR PRN Administration Nausea / Vomiting Pantoprazole Sodium 40 mg 04/15/18 07:00 04/15/18 06:17 Protonix PO 40 mg QDAC MEREDITH Administration Sodium Chloride 10 ml 04/15/18 01:00 04/15/18 06:17 Normal Saline Flush 0.9% IVP 10 ml 0100,0900,1700 MEREDITH Administration - Physical Exam Wound/Incisions: positive: Dressing dry and intact General Appearance: positive: Alert Skin: positive: Warm, Dry Extremities: positive: Joint swelling ABX Reporting Has patient been on IV antibiotics over the past 48 hours?: No Impression/Plan - Problem List Problem List: POD #1 Pt is doing better today with less pain, and better respiratory function plan to begin PT follow hct.
[2018-04-15] MEDS: POLYETHYLENE GLYCOL 3350 17 GM PACKET PO SCH (08:35)
[2018-04-15] MEDS: ENOXAPARIN 30 MG/0.3 ML SYRINGE SUBQ SCH (08:39)
[2018-04-15] MEDS ORDERED: POLYETHYLENE GLYCOL 3350 17 GM PACKET PO SCH (09:00)
[2018-04-15] MEDS ORDERED: ENOXAPARIN 30 MG/0.3 ML SYRINGE SUBQ SCH (09:00)
--- NOTE | 2018-04-15 10:16 | XRAY Report ---
Reason: FRACTURED HIP SURGERY Procedure Date: 04/14/2018 Accession Number: [id number] / [id number] Procedure: FL - OR C-Arm Procedure CPT Code: FULL RESULT: EXAM: FLUOROSCOPIC GUIDANCE EXAM DATE: 04/14/2018 03:14 PM. CLINICAL HISTORY: Fractured left hip surgery. COMPARISON: LEFT HIP SURGERY 04/14/2018 3:14 PM. FINDINGS: Left hip fracture ORIF with expected intramedullary chilango and interlocking partially threaded cannulated compression screw in expected positions. IMPRESSION: Fluoroscopic guidance provided for left hip ORIF. Total fluoroscopy time: 49 seconds. Number of images: 2. RADIA
--- NOTE | 2018-04-15 10:17 | XRAY Report ---
Reason: Left Hip Fracture Procedure Date: 04/14/2018 Accession Number: [id number] / [id number] Procedure: XR - Hip w/Pelvis 2-3V LT CPT Code: FULL RESULT: EXAM: FLUOROSCOPIC GUIDANCE EXAM DATE: 04/14/2018 03:14 PM. CLINICAL HISTORY: Fractured left hip surgery. COMPARISON: LEFT HIP SURGERY 04/14/2018 3:14 PM. FINDINGS: Left hip fracture ORIF with expected intramedullary chilango and interlocking partially threaded cannulated compression screw in expected positions. IMPRESSION: Fluoroscopic guidance provided for left hip ORIF. Total fluoroscopy time: 49 seconds. Number of images: 2. RADIA
--- NOTE | 2018-04-15 10:28 | PROVIDER PROGRESS NOTE ---
Subjective - Prog Note Date Prog Note Date: 04/15/18 Prog Note Time: 10:28 - Subjective Pt reports feeling: Improved Subjective: She does not feel the shortness of breath. She denies coughing, wheezing. Chest pain. Ate her breakfast. Really anxious to work with physical therapy because her goal is to walk out the door and not need rehab on postop day 3 Daughter and best friend at the bedside Current Medications - Current Medications Current Medications: Active Medications Enoxaparin Sodium (Lovenox) 30 mg SUBQ DAILY [facility] Last Admin: 04/15/18 08:39 Dose: 30 mg Sodium Chloride (Normal Saline 0.9%) 1,000 mls @ 100 mls/hr IV .Q10H [facility] Last Admin: 04/15/18 06:16 Dose: 100 mls/hr Cefazolin Sodium 1 gm/ Sodium (Chloride) 100 mls @ 200 mls/hr IV Q8H [facility] Last Infusion: 04/15/18 07:18 Dose: Infused Ketorolac Tromethamine (Toradol Inj (30mg)) 30 mg IVP Q6HR PRN PRN Reason: PAIN Stop: 04/19/18 18:52 Last Admin: 04/14/18 21:41 Dose: 30 mg Morphine Sulfate (Morphine (Carpuject)) 2 mg IVP Q2HR PRN PRN Reason: Pain 8 to 10 Ondansetron HCl (Zofran Inj) 4 mg IVP Q6HR PRN PRN Reason: Nausea / Vomiting Last Admin: 04/14/18 23:12 Dose: 4 mg Ondansetron HCl (Zofran Odt) 4 mg TL Q6HR PRN PRN Reason: Nausea / Vomiting Pantoprazole Sodium (Protonix) 40 mg PO QDAC [facility] Last Admin: 04/15/18 06:17 Dose: 40 mg Polyethylene Glycol (Miralax) 17 gm PO DAILY [facility] Last Admin: 04/15/18 08:35 Dose: Not Given Sodium Chloride (Normal Saline Flush 0.9%) 10 ml IVP PRN PRN PRN Reason: NEEDED PER PROVIDER ORDERS Sodium Chloride (Normal Saline Flush 0.9%) 10 ml IVP 0100,0900,1700 [facility] Last Admin: 04/15/18 08:34 Dose: 10 ml Multivitamin [Multiple Vitamins] 1 tab PO DAILY 04/14/18 Objective - Vital Signs/Intake & Output Reviewed Vital Signs: Yes Vital Signs: Vital Signs x48h Temp Pulse Resp BP Pulse Ox 04/15/18 09:00 37.1 C 78 18 127/56 L 96 04/15/18 05:02 76 16 111/49 L 97 04/15/18 04:00 36.8 C 71 16 110/50 L 98 Intake & Output: Intake & Output 04/12/18 04/13/18 04/14/18 04/15/18 23:59 23:59 23:59 23:59 Intake Total 100 1550 Output Total 240 410 Balance -140 1140 - Objective General Appearance: positive: No acute distress, Alert, Other (Slender white female who looks younger than stated age,) Eyes Bilateral: positive: PERRL, EOMI ENT: positive: Pharynx nml. negative: Dry mucous membranes Neck: positive: No JVD. negative: Stiff neck, Carotid bruit Respiratory: positive: Chest non-tender. negative: Wheezes, Rales, Rhonchi Cardiovascular: positive: Regular rate & rhythm. negative: Systolic murmur, Gallop/S4, Friction rub Abdomen: positive: Non-tender, No organomegaly, Nml bowel sounds, No distention Skin: positive: Warm, Dry Extremities: positive: Non-tender, No pedal edema, Other (skin around incision is clean, nml color). negative: Full ROM (In the affected hip) Neurologic/Psychiatric: positive: Oriented x3, CN's nml (2-12), Motor nml, Sensation nml - Lab Results Fish Bones: 04/15/18 04:25 04/15/18 04:25 Other Labs: Lab Results x24hrs 04/15/18 04/15/18 04/14/18 Range/Units 04:25 04:25 21:30 WBC 11.1 H (4.8-10.8) x10^3/uL RBC 3.43 L (4.20-5.40) 10^6/uL Hgb 9.9 L (12.0-16.0) g/dL Hct 30.2 L (37.0-47.0) % MCV 87.9 (81.0-99.0) fL MCH 28.9 (27.0-31.0) pg MCHC 32.9 (32.0-36.0) g/dL RDW 13.7 (12.0-15.0) % Plt Count 212 (130-450) 10^3/uL MPV 7.5 L (7.9-10.8) fL Neut # (Auto) 8.9 H (1.5-6.6) 10^3/uL Lymph # (Auto) 1.1 L (1.5-3.5) 10^3/uL Deuel # (Auto) 1.0 (0.0-1.0) 10^3/uL Eos # (Auto) 0.0 (0.0-0.7) 10^3/uL Baso # (Auto) 0.0 (0.0-0.1) 10^3/uL Absolute Nucleated RBC 0.01 x10^3/uL Nucleated RBC % 0.0 /100WBC Sodium 137 (135-145) mmol/L Potassium 4.1 (3.5-5.0) mmol/L Chloride 104 (101-111) mmol/L Carbon Dioxide 26 (21-32) mmol/L Anion Gap 7.0 (6-13) BUN 16 (6-20) mg/dL Creatinine 0.7 (0.4-1.0) mg/dL Estimated GFR (MDRD) 81 L (>89) Glucose 114 H (70-100) mg/dL Calcium 7.8 L (8.5-10.3) mg/dL Troponin I < 0.04 (<0.49) ng/mL Blood Type Antibody Screen 04/14/18 04/14/18 04/14/18 Range/Units 11:38 11:38 11:38 WBC 19.6 H (4.8-10.8) x10^3/uL RBC 4.72 (4.20-5.40) 10^6/uL Hgb 13.7 (12.0-16.0) g/dL Hct 40.7 (37.0-47.0) % MCV 86.2 (81.0-99.0) fL MCH 29.1 (27.0-31.0) pg MCHC 33.8 (32.0-36.0) g/dL RDW 14.0 (12.0-15.0) % Plt Count 303 (130-450) 10^3/uL MPV 7.2 L (7.9-10.8) fL Neut # (Auto) 17.3 H (1.5-6.6) 10^3/uL Lymph # (Auto) 1.2 L (1.5-3.5) 10^3/uL Deuel # (Auto) 1.0 (0.0-1.0) 10^3/uL Eos # (Auto) 0.0 (0.0-0.7) 10^3/uL Baso # (Auto) 0.1 (0.0-0.1) 10^3/uL Absolute Nucleated RBC 0.01 x10^3/uL Nucleated RBC % 0.1 /100WBC Sodium 135 (135-145) mmol/L Potassium 4.0 (3.5-5.0) mmol/L Chloride 100 L (101-111) mmol/L Carbon Dioxide 27 (21-32) mmol/L Anion Gap 8.0 (6-13) BUN 16 (6-20) mg/dL Creatinine 0.7 (0.4-1.0) mg/dL Estimated GFR (MDRD) 81 L (>89) Glucose 98 (70-100) mg/dL Calcium 9.2 (8.5-10.3) mg/dL Troponin I (<0.49) ng/mL Blood Type B POSITIVE Antibody Screen NEGATIVE ABX Reporting Has patient been on IV antibiotics over the past 48 hours?: Yes Assessment/Plan - Problem List (1) Fracture, intertrochanteric, left femur Impression: Conclusion/Plan: Suffered as a consequence of a mechanical fall. No neurologic or cardiac symptoms prior to event. Plan: Acute inpatient stay greater than 2 midnights Orthopedic consult with Dr. Eaton, resulted in ORIF 04/14/18 POD#1 PT and OT ordered Qualifiers: Encounter type: initial encounter (2) Post operative complication of hypoxia. Conclusion/Plan: This amy female does not have a history of ischemic heart disease, congestive heart failure, cerebrovascular disease, insulin therapy, or creatinine greater than 2. This is not a high risk surgery and that it is not intraperitoneal, intrathoracic or suprainguinal vascular. This leaves her with a revised cardiac index for preoperative risk at 0 points, class I risk, 0.4% risk of major cardiac event. In the postoperative setting, she would have short episodes of apnea. Nurse would gently touch her shoulder, call her name, she would immediately awaken take normal breaths and hypoxia would resolve. Then she drifted off back to sleep. When she would have apnea she would have trigeminy. She was transferred to ICU from PACU for closer monitoring and observation. Overnight she has had no further episodes of apnea. However she is consistently hypoxic at 1-1/2-2 L requirement of nasal cannula oxygen. She denies cough, shortness of breath. No chest congestion. Plan: Check chest x-ray Transfer to [facility] Every 4 hours vitals (3) Osteoporosis Conclusion/Plan: On her medication list for her cataracts in the summer 2017 she was on estradiol. We will make sure her medication reconciliation is correct. Plan: Continue calcium and vitamin D Consider starting Fosamax Qualifiers: Osteoporosis type: age-related Presence of current pathological fracture: with current pathological fracture Encounter type: initial encounter Qualified Code(s): M80.00XA - Age-related osteoporosis with current pathological fracture, unspecified site, initial encounter for fracture (4) Elevated white blood cell count Conclusion/Plan: Mild neutrophilia with this. Will check urinalysis, and chest x-ray. These were ordered and canceled. May have to do with [employer]. She does not have a fever. She did have a CT of the sinuses done April 03 because of sinus pain and there was no sinusitis.Will reorder today. She is received Rocephin in the perioperative setting for the surgery. Qualifiers: Leukocytosis type: unspecified Qualified Code(s): D72.829 - Elevated white blood cell count, unspecified
[2018-04-15] MEDS: KETOROLAC 30 MG/ML VIAL IVP PRN ×2 (10:39→16:58)
[2018-04-15 11:22] LABS: BILIRUBIN,URINE NEGATIVE (NEGATIVE); GLUCOSE, URINE (UA) NEGATIVE (NEGATIVE); KETONES,URINE (UA) NEGATIVE (NEGATIVE); LEUKOCYTE ESTERASE, URINE SMALL (NEGATIVE); NITRITE,URINE NEGATIVE (NEGATIVE); OCCULT BLOOD,URINE MODERATE (NEGATIVE); PH,URINE 5.5 PH (5.0-7.5); PROTEIN,URINE NEGATIVE (NEGATIVE); UROBILINOGEN,URINE 0.2 (NORMAL) E.U./dL (NORMAL)
[2018-04-15 11:23] LABS: CLARITY,URINE CLEAR (CLEAR)
[2018-04-15 11:33] LABS: BACTERIA,URINE Rare /HPF (None Seen); RBC,URINE 0-5 /HPF (0-5); SQUAMOUS EPITHELIAL CELL,UR NONE SEEN (<= Few)
--- NOTE | 2018-04-15 12:14 | CONSULTATION NOTE ---
DATE OF SERVICE: 04/14/2018 Physician: Cam Yun MD REASON FOR CONSULTATION: Left intertrochanteric hip fracture. REQUESTING PHYSICIAN: Gavi Oneal MD. REASON FOR CONSULTATION: Left intertrochanteric hip fracture. HISTORY OF PRESENT ILLNESS: This is a 77-year-old female who was at her exercise class when she suff ered a trip and fall, and suffered an intertrochanteric hip fracture. She was diagnosed by x-ray in the emergency room, and by report she had been n.p.o. from 6 a.m. until the time she presented there at approximately 0947 hours, and my evaluation occurred somewhere around noon. The patient's prior m edical history is documented in her medical record. PHYSICAL EXAMINATION: The patient's physical exam shows her to be alert and oriented, and having mod erate hip pain, and pain with movement of her hip. She does not have deformity of it, but holds it s lightly rotated externally, and does not yet have bruising or swelling of her hip, and has no other a reas of pain or wounds. X-RAYS: X-rays show an intertrochanteric fracture with minimal deformity and displacement. RECOMMENDATIONS: The patient is to undergo surgical stabilization of her fracture, and because the patient was of sufficient health and n.p.o., it was felt reasonable to proceed to surgery today on . TD: 04/15/2018 12:00
--- NOTE | 2018-04-15 13:32 | XRAY Report ---
Reason: hypoxia post op Procedure Date: 04/15/2018 Accession Number: [id number] / [id number] Procedure: XR - Chest 1 View X-Ray CPT Code: 11426 FULL RESULT: EXAM: CHEST RADIOGRAPHY EXAM DATE: 04/15/2018 11:09 AM. CLINICAL HISTORY: Shortness of breath. COMPARISON: CHEST 2 VIEW PA/LAT 04/12/2014 9:18 AM. TECHNIQUE: 1 view. FINDINGS: Lungs/Pleura: No focal opacities evident. No pleural effusion. No pneumothorax. Mediastinum: Within exam limitations, the cardiomediastinal contour is normal. Other: None. IMPRESSION: Normal single view chest. RADIA
[2018-04-16] MEDS: SODIUM CHLORIDE FLUSH 0.9% 10 ML SYRINGE IVP PRN ×5 (00:33→11:41)
[2018-04-16] MEDS: SODIUM CHLORIDE FLUSH 0.9% 10 ML SYRINGE IVP SCH ×3 (00:33→18:38)
[2018-04-16] MEDS: KETOROLAC 30 MG/ML VIAL IVP PRN ×2 (00:33→11:38)
[2018-04-16] MEDS: SODIUM CHLORIDE 0.9% 1,000 ML IV SCH (04:37)
[2018-04-16] MEDS: ceFAZolin 1 GM in SODIUM CHLORIDE 0.9% MINIBAG 100 ML IV SCH (06:00)
[2018-04-16] MEDS: PANTOPRAZOLE 40 MG TABLET PO SCH (06:01)
--- NOTE | 2018-04-16 07:11 | PROVIDER PROGRESS NOTE ---
Subjective - Prog Note Date Prog Note Date: 04/16/18 Prog Note Time: 12:39 - Subjective Subjective: She feels miserable. She just kind of feels achy all over. But she cannot tell me why. She is nauseated. This is even with Zofran and Phenergan. She does not have much pain. From a physical therapy perspective they are wondering if she can go home tomorrow. I checked a chest x-ray for her hypoxia and that was negative. Her white cell count was elevated on admission at 19.6, then came down to 11.1, and today is 9.5. Her temperature crept up to 37.7 at midnight last night. Today she is been 37.0 and 37.3. She denies chest pain, palpitations, shortness of breath. No diarrhea. No abdominal pain. No urgency, frequency, dysuria. Current Medications - Current Medications Current Medications: Active Medications Generic Name Dose Route Start Last Admin Trade Name Freq PRN Reason Stop Dose Admin Enoxaparin Sodium 30 mg 04/15/18 09:00 04/15/18 08:39 Lovenox SUBQ 30 mg DAILY [facility] Administration Sodium Chloride 1,000 mls @ 100 mls/hr 04/14/18 19:00 04/16/18 04:37 Normal Saline 0.9% IV 100 mls/hr .Q10H [facility] Administration Cefazolin Sodium 1 gm/ Sodium 100 mls @ 200 mls/hr 04/14/18 22:00 04/16/18 07:01 Chloride IV Infused Q8H [facility] Infusion Ketorolac Tromethamine 30 mg 04/14/18 18:53 04/16/18 00:33 Toradol Inj (30mg) IVP 04/19/18 18:52 30 mg Q6HR PRN Administration PAIN Morphine Sulfate 2 mg 04/14/18 18:51 Morphine (Carpuject) IVP Q2HR PRN Pain 8 to 10 Ondansetron HCl 4 mg 04/14/18 18:51 04/14/18 23:12 Zofran Inj IVP 4 mg Q6HR PRN Administration Nausea / Vomiting Ondansetron HCl 4 mg 04/14/18 18:51 04/16/18 07:03 Zofran Odt TL 4 mg Q6HR PRN Administration Nausea / Vomiting Pantoprazole Sodium 40 mg 04/15/18 07:00 04/16/18 06:01 Protonix PO 40 mg QDAC [facility] Administration Polyethylene Glycol 17 gm 04/15/18 09:00 04/15/18 08:35 Miralax PO Not Given DAILY [facility] Sodium Chloride 10 ml 04/14/18 18:52 04/16/18 06:01 Normal Saline Flush 0.9% IVP 10 ml PRN PRN Administration NEEDED PER PROVIDER ORDERS Sodium Chloride 10 ml 04/15/18 01:00 04/16/18 00:33 Normal Saline Flush 0.9% IVP 10 ml 0100,0900,1700 [facility] Administration Multivitamin [Multiple Vitamins] 1 tab PO DAILY 04/14/18 Objective - Vital Signs/Intake & Output Reviewed Vital Signs: Yes Vital Signs: Vital Signs x48h Temp Pulse Resp BP Pulse Ox 04/16/18 04:36 36.8 C 90 18 155/74 H 2 L 04/16/18 00:30 37.7 C H 101 H 18 165/64 H 95 Intake & Output: Intake & Output 04/13/18 04/14/18 04/15/18 04/16/18 23:59 23:59 23:59 23:59 Intake Total 100 3690.000 1100 Output Total 240 1315 Balance -140 2375.000 1100 - Objective General Appearance: positive: Alert, Other (Sitting up in chair, eating lunch without any difficulty.) Eyes Bilateral: positive: PERRL ENT: positive: Pharynx nml Neck: positive: No JVD. negative: Stiff neck, Carotid bruit Respiratory: positive: Chest non-tender. negative: Wheezes, Rales, Rhonchi Cardiovascular: positive: Regular rate & rhythm. negative: Systolic murmur, Gallop/S4, Friction rub Abdomen: positive: Non-tender, No organomegaly, Nml bowel sounds, No distention Skin: positive: Warm, Dry Extremities: positive: Full ROM (Except affected hip.), No pedal edema Neurologic/Psychiatric: positive: Oriented x3, CN's nml (2-12), Motor nml, Sensation nml - Lab Results Fish Bones: 04/16/18 11:36 04/16/18 11:36 Other Labs: Lab Results x24hrs 04/15/18 Range/Units 11:00 Urine Color YELLOW Urine Clarity CLEAR (CLEAR) Urine pH 5.5 (5.0-7.5) PH Ur Specific [place] <=1.005 (1.002-1.030) Urine Protein NEGATIVE (NEGATIVE) mg/dL Urine Glucose (UA) NEGATIVE (NEGATIVE) mg/dL Urine Ketones NEGATIVE (NEGATIVE) mg/dL Urine Occult Blood MODERATE H (NEGATIVE) Urine Nitrite NEGATIVE (NEGATIVE) Urine Bilirubin NEGATIVE (NEGATIVE) Urine Urobilinogen 0.2 (NORMAL) (NORMAL) E.U./dL Ur Leukocyte Esterase SMALL H (NEGATIVE) Urine RBC 0-5 (0-5) /HPF Urine WBC 0-3 (0-5) /HPF Ur Squamous Epith Cells NONE SEEN (<= Few) Urine Bacteria Rare (None Seen) /HPF Urine Culture Comments INDICATED - Diagnostic Imaging Diagnostic Imaging Results: positive: Final report reviewed Diagnostic Imaging Comments: CHEST RADIOGRAPHY EXAM DATE: 04/15/2018 11:09 AM. CLINICAL HISTORY: Shortness of breath. COMPARISON: CHEST 2 VIEW PA/LAT 04/12/2014 9:18 AM. TECHNIQUE: 1 view. FINDINGS: Lungs/Pleura: No focal opacities evident. No pleural effusion. No pneumothorax. Mediastinum: Within exam limitations, the cardiomediastinal contour is normal. Other: None. IMPRESSION: Normal single view chest. ABX Reporting Has patient been on IV antibiotics over the past 48 hours?: Yes Assessment/Plan - Problem List (1) Fracture, intertrochanteric, left femur Impression: Suffered as a consequence of a mechanical fall. No neurologic or cardiac symptoms prior to event. Plan: Acute inpatient stay greater than 2 midnights Orthopedic consult with Dr. Eaton, resulted in ORIF 04/14/18 POD#2 PT being done. They say that she is doing phenomenally well. If there are no medical contraindications she may be able to be discharged by tomorrow. She has she may be able to go home, not to rehab. Rehab will be through home health PT. DVT prophylaxis with lovenox. Qualifiers: Encounter type: initial encounter (2) Post operative complication of hypoxia. Conclusion/Plan: Resolved. This amy female does not have a history of ischemic heart disease, congestive heart failure, cerebrovascular disease, insulin therapy, or creatinine greater than 2. This is not a high risk surgery and that it is not intraperitoneal, intrathoracic or suprainguinal vascular. This leaves her with a revised cardiac index for preoperative risk at 0 points, class I risk, 0.4% risk of major cardiac event. In the postoperative setting, she would have short episodes of apnea. Nurse would gently touch her shoulder, call her name, she would immediately awaken take normal breaths and hypoxia would resolve. Then she drifted off back to sleep. When she would have apnea she would have trigeminy. She was transferred to ICU from PACU for closer monitoring and observation. Overnight she had no further episodes of apnea. However she was consistently hypoxic at 1-1/2-2 L requirement of nasal cannula oxygen. She denied cough, shortness of breath. No chest congestion. a chest xray was negative and by 04/15 evening she was 98% on room air. She was transferred to [facility] from ICU yesterday morning. Today she continues to just not feel well. With a low-grade fever, resolved elevated white cell count, hip fracture with a reaming of the femur, I will order a CT angiogram to make sure she did not have a fat embolus. Plan: reduce vital check frequency (3) Osteoporosis Conclusion/Plan: On her medication list for her cataracts in the summer 2017 she was on estradiol. We will make sure her medication reconciliation is correct. Plan: Continue calcium and vitamin D Consider starting Fosamax after discharge since she is nauseated. Qualifiers: Osteoporosis type: age-related Presence of current pathological fracture: with current pathological fracture Encounter type: initial encounter Qualified Code(s): M80.00XA - Age-related osteoporosis with current pathological fracture, unspecified site, initial encounter for fracture (4) Elevated white blood cell count Conclusion/Plan: Mild neutrophilia with this. Will check urinalysis, and chest x-ray. These were ordered and canceled. May have to do with [employer]. She does not have a fever. She did have a CT of the sinuses done April 03 because of sinus pain and there was no sinusitis. She is received Rocephin in the perioperative setting for the surgery. CXR is negative. UA negative. Check CTA for fat embolus. Qualifiers: Leukocytosis type: unspecified Qualified Code(s): D72.829 - Elevated white blood cell count, unspecified
[2018-04-16] MEDS ORDERED: PROMETHAZINE INJ 25 MG in SODIUM CHLORIDE 0.9% 50 ML IV PRN (08:28)
--- NOTE | 2018-04-16 08:37 | PROVIDER PROGRESS NOTE ---
Subjective - General Admit Date: 04/14/18 Procedure Date: 04/14/18 Post Op Days: 2 Procedure Performed: left femoral chilango for intertrochanteric fracture - Review of Systems Wound/Incisions: positive: Healing well HEENT: positive: Headaches Musculoskeletal: positive: Joint pain, Joint swelling Psychiatric: positive: No symptoms Objective - Patient Data Reviewed Vital Signs: Yes Vital Signs: Vital Signs x48h Temp Pulse Resp BP Pulse Ox 04/16/18 07:46 37.3 C 98 16 172/76 H 95 04/16/18 04:36 36.8 C 90 18 155/74 H 2 L Weight: Weight 04/14/18 04/15/18 04/16/18 23:59 23:59 23:59 Weight (kg) 51.71 kg Intake & Output: Intake and Output Totals x24h 04/14/18 04/15/18 04/16/18 23:59 23:59 23:59 Intake Total 100 3690.000 1100 Output Total 240 1315 Balance -140 2375.000 1100 - Lab Results Lab Results: 04/15/18 04:25 04/16/18 11:36 Other Lab Results: Lab Results x24hrs 04/15/18 Range/Units 11:00 Urine Color YELLOW Urine Clarity CLEAR (CLEAR) Urine pH 5.5 (5.0-7.5) PH Ur Specific [place] <=1.005 (1.002-1.030) Urine Protein NEGATIVE (NEGATIVE) mg/dL Urine Glucose (UA) NEGATIVE (NEGATIVE) mg/dL Urine Ketones NEGATIVE (NEGATIVE) mg/dL Urine Occult Blood MODERATE H (NEGATIVE) Urine Nitrite NEGATIVE (NEGATIVE) Urine Bilirubin NEGATIVE (NEGATIVE) Urine Urobilinogen 0.2 (NORMAL) (NORMAL) E.U./dL Ur Leukocyte Esterase SMALL H (NEGATIVE) Urine RBC 0-5 (0-5) /HPF Urine WBC 0-3 (0-5) /HPF Ur Squamous Epith Cells NONE SEEN (<= Few) Urine Bacteria Rare (None Seen) /HPF Urine Culture Comments INDICATED - Current Medications Current Medications: Current Medications Generic Name Dose Route Start Last Admin Trade Name Freq PRN Reason Stop Dose Admin Enoxaparin Sodium 30 mg 04/15/18 09:00 04/15/18 08:39 Lovenox SUBQ 30 mg DAILY [facility] Administration Sodium Chloride 1,000 mls @ 100 mls/hr 04/14/18 19:00 04/16/18 04:37 Normal Saline 0.9% IV 100 mls/hr .Q10H [facility] Administration Cefazolin Sodium 1 gm/ Sodium 100 mls @ 200 mls/hr 04/14/18 22:00 04/16/18 07:01 Chloride IV Infused Q8H [facility] Infusion Ketorolac Tromethamine 30 mg 04/14/18 18:53 04/16/18 00:33 Toradol Inj (30mg) IVP 04/19/18 18:52 30 mg Q6HR PRN Administration PAIN Ondansetron HCl 4 mg 04/14/18 18:51 04/14/18 23:12 Zofran Inj IVP 4 mg Q6HR PRN Administration Nausea / Vomiting Ondansetron HCl 4 mg 04/14/18 18:51 04/16/18 07:03 Zofran Odt TL 4 mg Q6HR PRN Administration Nausea / Vomiting Pantoprazole Sodium 40 mg 04/15/18 07:00 04/16/18 06:01 Protonix PO 40 mg QDAC [facility] Administration Polyethylene Glycol 17 gm 04/15/18 09:00 04/15/18 08:35 Miralax PO Not Given DAILY [facility] Sodium Chloride 10 ml 04/14/18 18:52 04/16/18 06:01 Normal Saline Flush 0.9% IVP 10 ml PRN PRN Administration NEEDED PER PROVIDER ORDERS Sodium Chloride 10 ml 04/15/18 01:00 04/16/18 00:33 Normal Saline Flush 0.9% IVP 10 ml 0100,0900,1700 [facility] Administration - Physical Exam Wound/Incisions: positive: Healing well Extremities: positive: Joint swelling Neurologic/Psychiatric: positive: Oriented x3, CN's nml (2-12), Motor nml, Sensation nml, Mood/affect nml Impression/Plan - Problem List Problem List: POD #2 Pt doing well with hip surgery but hindered in recovery by migraine. Will continue with rehab. expect d/c to home Friday. Will leave dressing alone Ice to hip Weight bearing as tolerated with walker RTC in 2 wks.
[2018-04-16] MEDS: POLYETHYLENE GLYCOL 3350 17 GM PACKET PO SCH (10:42)
[2018-04-16] MEDS: ONDANSETRON 4 MG/2 ML VIAL IVP PRN (11:38)
[2018-04-16] MEDS: ENOXAPARIN 30 MG/0.3 ML SYRINGE SUBQ SCH (11:39)
[2018-04-16 11:52] LABS: BASOPHILS % (AUTO) 0.4 %; EOSINOPHILS # (AUTO) 0.1 10^3/uL (0.0-0.7); EOSINOPHILS % (AUTO) 1.2 %; HGB - HEMOGLOBIN 9.5 g/dL (12.0-16.0); LYMPHOCYTES # (AUTO) 0.8 10^3/uL (1.5-3.5); LYMPHOCYTES % (AUTO) 8.7 %; MEAN CORPUSCULAR HEMOGLOBIN 29.4 pg (27.0-31.0); MEAN CORPUSCULAR HGB CONC 33.8 g/dL (32.0-36.0); MEAN PLATELET VOLUME 7.1 fL (7.9-10.8); MONOCYTES # (AUTO) 0.8 10^3/uL (0.0-1.0); MONOCYTES % (AUTO) 8.4 %; NEUTROPHILS # (AUTO) 7.7 10^3/uL (1.5-6.6); NEUTROPHILS % (AUTO) 81.3 %; PLT - PLATELET COUNT 183 10^3/uL (130-450); RED BLOOD COUNT 3.23 10^6/uL (4.20-5.40); RED CELL DISTRIBUTION WIDTH 13.6 % (12.0-15.0); WHITE BLOOD COUNT 9.5 x10^3/uL (4.8-10.8)
[2018-04-16 11:53] LABS: ALBUMIN 2.7 g/dL (3.2-5.5); BILIRUBIN,TOTAL 0.7 mg/dL (0.2-1.0); CALCIUM 8.3 mg/dL (8.5-10.3); CREATININE 0.7 mg/dL (0.4-1.0); TOTAL PROTEIN 5.5 g/dL (6.7-8.2)
[2018-04-16] MEDS ORDERED: IOVERSOL 320 100 ML VIAL IVP ONE ×2 (11:57→16:53)
--- NOTE | 2018-04-16 12:43 | CT Report ---
Reason: hypoxia post op femur, fever, wbc Procedure Date: 04/16/2018 Accession Number: [id number] / [id number] Procedure: CT - Chest Angio (PE) CPT Code: FULL RESULT: EXAM: CT ANGIOGRAM CHEST EXAM DATE: 04/16/2018 12:10 PM. CLINICAL HISTORY: Hypoxia post op femur, fever, WBC. COMPARISON: None. TECHNIQUE: Routine helical imaging was performed through the chest in the pulmonary arterial phase. IV Contrast: OPTI 320 72mL. Reconstructions: Coronal 3-D MIP reconstructions.Sagittal and coronal. In accordance with CT protocol optimization, one or more of the following dose reduction techniques were utilized for this exam: automated exposure control, adjustment of mA and/or KV based on patient size, or use of iterative reconstructive technique. FINDINGS: Pulmonary Arteries: Diagnostic quality: Adequate through the segmental arteries. No evidence for acute or chronic pulmonary emboli. RV/LV is within normal limits. There is no interventricular septal bowing. There is no reflux of contrast material in the IVC. Lungs/Pleura: Small amount of left basilar atelectasis and bibasilar dependent changes. There is mild interstitial thickening predominantly at the lung bases. Mediastinum: Mild prominence of the right hilum, possibly prominent lymph node, difficult to visualize due to streak artifact and low-dose technique. Otherwise, no lymphadenopathy in the mediastinum. No cardiac enlargement or adenopathy. Thoracic Aorta: Unremarkable. Upper Abdomen: Unremarkable. Other: There is a 0.8 cm right thyroid nodule. IMPRESSION: No pulmonary embolism. A 0.8 cm right thyroid nodule is amenable to routine outpatient thyroid ultrasound for characterization unless this has already been performed. RADIA
[2018-04-16] MEDS: CHOLECALCIFEROL 1,000 UNIT TABLET PO SCH (14:12)
[2018-04-16] MEDS ORDERED: oxyCODONE 5 MG TABLET PO PRN (14:39)
[2018-04-16] MEDS ORDERED: LORazepam 2 MG/ML VIAL ONE (15:13)
[2018-04-16] MEDS: CALCIUM CARBONATE CHEW 500 MG TABLET PO SCH (20:12)
[2018-04-17] MEDS: IBUPROFEN 600 MG TABLET PO SCH ×3 (00:07→12:37)
[2018-04-17] MEDS: SODIUM CHLORIDE FLUSH 0.9% 10 ML SYRINGE IVP SCH ×2 (00:08→08:58)
[2018-04-17] MEDS: PANTOPRAZOLE 40 MG TABLET PO SCH (06:31)
[2018-04-17] MEDS: CHOLECALCIFEROL 1,000 UNIT TABLET PO SCH (08:58)
[2018-04-17] MEDS: CALCIUM CARBONATE CHEW 500 MG TABLET PO SCH (08:58)
[2018-04-17] MEDS: ENOXAPARIN 30 MG/0.3 ML SYRINGE SUBQ SCH (08:58)
[2018-04-17] MEDS: POLYETHYLENE GLYCOL 3350 17 GM PACKET PO SCH (08:58)
--- NOTE | 2018-04-17 09:18 | Discharge Plan ---
Discharge Plan Disposition: Home Health Service Condition: Good Prescriptions: oxyCODONE [Roxicodone] 2.5 mg PO Q4HR PRN #25 tablet PRN Reason: Pain Calcium Carbonate/Vitamin D3 [Calcium 600-Vit D3 800 Tablet] 1 each PO BID #60 tablet Diet: Regular Activity Restrictions: Wt Bearing as Tolerated Shower Restrictions: No Driving Restrictions: Yes (no driving until fully mobile off of affected leg) Assistance Devices: Walker, Other (Oxygen) Weight Bearing: Full Weight Instruction Topics: Oxycodone tablets or capsules, Oxygen Use Safety Additional Instructions or Follow Up instructions: You were admitted to the hospital because you had fallen and broken your left femur. You have done very well with surgery and in the postoperative recovery period. You did have a reaction to anesthesia that caused your respiratory drive to be blunted, and you would breathe so slowly your oxygen level would go down. Your chest x-ray was negative, and a CAT scan of your lungs for a blood clot was negative. At discharge you still needed some oxygen to go home on. You need it mainly with ambulation. We did an echocardiogram just before you left to look at the pump of your heart and the pump mechanism is completely normal with an ejection fraction of 65-70%. However, you do have a new aortic valve disease diagnosis. You seem to have new aortic stenosis. Make sure that you follow through with a cotton weigher after referral by Dr. Gregg. You have done well enough that you are a candidate for just going home. I will order home health with physical therapy. While you are able to stand and walk, Dr. Yun would like you to walk with a walker at home. I would also like you to postpone your own driving for the next week or so until your leg is more fluidly mobile. You have osteoporosis. We discussed drugs such as Fosamax, Prolia, etc. However you strongly feel that you do not like to take chemicals into your body. And have opted not to treat the osteoporosis with medication and would like to continue weightbearing exercise, calcium and vitamin D. I have sent a prescript ion for the calcium and vitamin D to your pharmacy. Pain will be treated with half of an oxycodone at a time. That and a Tylenol tablet will most likely control your pain completely. Please see Dr. Gregg in the next 1-2 weeks and follow-up. Please see Dr. Yun in 2 weeks. Keep the wound on your hip clean and dry. He will remove bandages and any josselyn or sutures if needed. Follow-Up Care: Home Health - PT No Smoking: If you smoke, Please STOP! Call for help. Follow-up with: James Gregg MD [Primary Care Provider] - Cam Yun MD [Provider Admit Priv/Credential] -
--- NOTE | 2018-04-17 09:45 | PROVIDER PROGRESS NOTE ---
Subjective - General Admit Date: 04/14/18 Procedure Date: 04/14/18 Post Op Days: 3 Procedure Performed: left femoral chilango for intertrochanteric fracture - Review of Systems Wound/Incisions: positive: Healing well Musculoskeletal: positive: Joint pain, Joint swelling Psychiatric: positive: No symptoms Objective - Patient Data Reviewed Vital Signs: Yes Vital Signs: Vital Signs x48h Temp Pulse Resp BP Pulse Ox 04/17/18 08:03 36.9 C 80 16 132/53 H 97 04/17/18 06:36 97 04/17/18 06:32 36.4 C L 81 18 139/63 H 98 Intake & Output: Intake and Output Totals x24h 04/15/18 04/16/18 04/17/18 23:59 23:59 23:59 Intake Total 3690.000 2624.000 480 Output Total 1315 1 Balance 2375.000 2624.000 479 - Lab Results Lab Results: 04/16/18 11:36 04/16/18 11:36 Other Lab Results: Lab Results x24hrs 04/16/18 04/16/18 04/16/18 Range/Units 11:36 11:36 11:36 WBC 9.5 (4.8-10.8) x10^3/uL RBC 3.23 L (4.20-5.40) 10^6/uL Hgb 9.5 L (12.0-16.0) g/dL Hct 28.1 L (37.0-47.0) % MCV 87.0 (81.0-99.0) fL MCH 29.4 (27.0-31.0) pg MCHC 33.8 (32.0-36.0) g/dL RDW 13.6 (12.0-15.0) % Plt Count 183 (130-450) 10^3/uL MPV 7.1 L (7.9-10.8) fL Neut # (Auto) 7.7 H (1.5-6.6) 10^3/uL Lymph # (Auto) 0.8 L (1.5-3.5) 10^3/uL Emery # (Auto) 0.8 (0.0-1.0) 10^3/uL Eos # (Auto) 0.1 (0.0-0.7) 10^3/uL Baso # (Auto) 0.0 (0.0-0.1) 10^3/uL Absolute Nucleated RBC 0.00 x10^3/uL Nucleated RBC % 0.0 /100WBC Sodium 140 (135-145) mmol/L Potassium 4.0 (3.5-5.0) mmol/L Chloride 109 (101-111) mmol/L Carbon Dioxide 25 (21-32) mmol/L Anion Gap 6.0 (6-13) BUN 12 (6-20) mg/dL Creatinine 0.7 (0.4-1.0) mg/dL Estimated GFR (MDRD) 81 L (>89) Glucose 95 (70-100) mg/dL Calcium 8.3 L (8.5-10.3) mg/dL Total Bilirubin 0.7 (0.2-1.0) mg/dL AST 24 (10-42) IU/L ALT 11 (10-60) IU/L Alkaline Phosphatase 50 (42-121) IU/L Troponin I 0.09 (<0.49) ng/mL Total Protein 5.5 L (6.7-8.2) g/dL Albumin 2.7 L (3.2-5.5) g/dL Globulin 2.8 (2.1-4.2) g/dL Albumin/Globulin Ratio 1.0 (1.0-2.2) - Current Medications Current Medications: Current Medications Generic Name Dose Route Start Last Admin Trade Name Freq PRN Reason Stop Dose Admin Calcium Carbonate/Glycine 500 mg 04/16/18 21:00 04/17/18 08:58 Tums PO 500 mg BID [facility] Administration Cholecalciferol 2,000 unit 04/16/18 13:00 04/17/18 08:58 Vitamin D3 PO 2,000 unit DAILY [facility] Administration Enoxaparin Sodium 30 mg 04/15/18 09:00 04/17/18 08:58 Lovenox SUBQ 30 mg DAILY [facility] Administration Promethazine HCl 25 mg/ Sodium 51 mls @ 100 mls/hr 04/16/18 08:28 04/16/18 09:33 Chloride IV Infused Q6H PRN Infusion Nausea / Vomiting Ibuprofen 600 mg 04/17/18 00:00 04/17/18 06:30 Motrin PO Not Given Q6HR [facility] Ondansetron HCl 4 mg 04/14/18 18:51 04/16/18 11:38 Zofran Inj IVP 4 mg Q6HR PRN Administration Nausea / Vomiting Ondansetron HCl 4 mg 04/14/18 18:51 04/16/18 07:03 Zofran Odt TL 4 mg Q6HR PRN Administration Nausea / Vomiting Pantoprazole Sodium 40 mg 04/15/18 07:00 04/17/18 06:31 Protonix PO 40 mg QDAC [facility] Administration Polyethylene Glycol 17 gm 04/15/18 09:00 04/17/18 08:58 Miralax PO 17 gm DAILY [facility] Administration Sodium Chloride 10 ml 04/14/18 18:52 04/16/18 11:41 Normal Saline Flush 0.9% IVP 10 ml PRN PRN Administration NEEDED PER PROVIDER ORDERS Sodium Chloride 10 ml 04/15/18 01:00 04/17/18 08:58 Normal Saline Flush 0.9% IVP 10 ml 0100,0900,1700 [facility] Administration - Physical Exam Extremities: positive: Joint swelling Neurologic/Psychiatric: positive: Oriented x3, CN's nml (2-12), Motor nml, Sensation nml, Mood/affect nml (denies migraine) Impression/Plan - Problem List Problem List: POD #3 pt is feeling ready for d/c home discussed post op recovery and clinic f/u She will leave dressing clean, dry, intact.
[2018-04-17 11:30] VITALS: BP 139/58
--- NOTE | 2018-04-17 14:10 | DISCHARGE SUMMARY ---
Physician: Sherry Infante MD DATE OF ADMISSION: 04/14/2018 DATE OF DISCHARGE: 04/17/2018 DISCHARGE DIAGNOSES 1. Fracture, intertrochanteric, left femur. 2. Osteoporosis. 3. Elevated white cell count. 4. Postoperative complication of hypoxia. 5. Preoperative evaluation. DISCHARGE MEDICATIONS 1. Calcium with vitamin D 600/800 mg p.o. b.i.d. 2. Roxicodone 5 mg tablet 1/2 tablet every 4 hours as needed for pain, #25. 3. Multivitamin daily. PRINCIPAL PROCEDURES 1. IM rodding of left femur. 2. Hip and pelvis x-ray showing intertrochanteric left femur fracture. 3. Chest x-ray postoperatively that was normal. 4. CT angiogram of chest, showing no PE. Small amount of left basilar atelectasis and bibasilar dependent changes. Mild interstitial thickening predominantly at the lung bases. A 0.8 cm right thyroid nodule. 5. Urine culture showing no growth at 24 hours. HOSPITAL COURSE: This is a amy, 77-year-old female whose past medical history is mainly significant more for osteoporosis than anything else. She has no cardiovascular disease, and has been plagued by a little bit of postnasal drip and sinus with chest congestion for the last few weeks. Recent CT of the sinuses is negative. She was in [employer] class, fell and broke her hip. This lady walks 6-8 miles a day and does [employer] frequently during the week. She recently stopped estradiol, and calcium and vitamin D about a month ago. She just wanted to see how she would feel off it. Her T-scores have fluctuated over the course of several years since approximately 2010 and 2003, showing osteopenia verging onto osteoporosis. Revised cardiac index scoring for preoperative evaluation showed her to be at 0 points with 0.4 risk. In the postoperative setting, this patient had hypoxia that was not really completely explained. She had some minimal inflammatory changes on CT pulmonary angiogram, but no PE. Chest x-ray is without infiltrate. This is a woman who exercises every day. She continued to be hypoxic at discharge and would require nasal cannula oxygen. I ordered an echocardiogram to do preliminary evaluation of her cardiac status that might be impacting oxygenation. She seems to have a early aortic stenosis. The final report is not available yet. Dr. Gregg, her primary care provider, will need to follow-up with her on that. At rest room air sats were 89% with a pulse of 103. On ambulation her O2 sat dropped to 85% and a heartbeat of 120. With 2 L ambulation she went to 93% and a heart rate of 126. This is with walking 50 feet. As such the patient will go home on 2 L. She is sent home on oxygen. It is hoped that it is only temporary. She will need followup in the outpatient setting and I have done sign-out with Pamela Lion, since Dr. Gregg is not in the office today. She has also declined treatment for osteoporosis. She does not believe in chemicals entering her body. She would prefer calcium and vitamin D. She was up and ambulating by postop day 3, doing phenomenally well. Because of the white cell count that was elevated, hypoxic, I did worry about pulmonary embolus, but again CT pulmonary angiogram was negative. On the day of discharge, she is fatigued, but wanting to go home. She is very happy that she does not have to do rehab and PT feels she is safe to go home with home health PT. PHYSICAL EXAMINATION VITAL SIGNS: Temperature is 36.7, pulse of 87, blood pressure 139/58, respirations 16, 98% on 2 liters. She is a slender, alert, white female who looks younger than stated age. NECK: Supple. No goiter. Spine without kyphosis. LUNGS: Clear to auscultation and percussion, and she is doing incentive spirometry, and is sent home with her own tube. HEART: She has a regular rate and rhythm. No murmurs, rubs or gallops. ABDOMEN: Soft, nontender. EXTREMITIES: Warm, without any edema. SKIN: The left lateral hip incision site is covered in a bandage. The surrounding skin is clean, no bruising or bleeding. No redness or heat. NEUROLOGIC: She is ambulating with a walker. Greater than 30 minutes was spent coordinating discharge with oxygen desaturation test, sign-out to Dr. Gregg, and speaking at length to the patient about osteoporosis and discharge instructions. I have asked her to please follow up with an outpatient echocardiogram if hypoxia continues. cc: James Gregg MD TD: 04/17/2018 12:51 [facility]
== END 2018-04-17 14:51 | disposition home health service (06) | DRG 481 ==
LOC: EDUNIT# → ED 09:39 → MS2 12:38 → UNDOADMIN 12:38 → MS2 12:39 → ICU 12:39 → UNDOADMIN 12:39 → SDS 14:00 → MS2 18:10 → ICU 18:10 → MS2 04-15 12:54
PROVIDERS: ADMIT Specialist; ATTEND Specialist
PROC: 0QH736Z Insertion of Intramedullary Internal Fixation Device into Left Upper Femur, Percutaneous Approach (ICD-10-PCS; principal; 2018-04-14 14:30)
DX: S72.002A Fracture of unspecified part of neck of left femur, initial encounter for closed fracture (principal); S72.142A Displaced intertrochanteric fracture of left femur, initial encounter for closed fracture; J98.11 Atelectasis; W19.XXXA Unspecified fall, initial encounter; M81.0 Age-related osteoporosis without current pathological fracture; R09.02 Hypoxemia; I35.0 Nonrheumatic aortic (valve) stenosis; M19.90 Unspecified osteoarthritis, unspecified site; Z87.442 Personal history of urinary calculi; Z90.710 Acquired absence of both cervix and uterus; D72.829 Elevated white blood cell count, unspecified; G43.909 Migraine, unspecified, not intractable, without status migrainosus; H54.7 Unspecified visual loss
CPT/HCPCS: 36415; 51702; 71045; 71275; 80048; 80053; 81001; 84484; 85025; 86850; 86900; 86901; 87086; 87150; 93005; 93306; 94761; 99283; 99284

== ENCOUNTER 2019-04-22 15:02 | Outpatient (CLI) | payer MEDICARE, OTHER ==
--- NOTE | 2019-04-22 15:40 | XRAY Report ---
Reason: ARM PAIN,LEFT ELBOW PAIN Procedure Date: 04/22/2019 Accession Number: [id number] / [id number] Procedure: XR - Elbow 2 View LT CPT Code: Final Report FULL RESULT: EXAM: LEFT ELBOW RADIOGRAPHY EXAM DATE: 04/22/2019 03:14 PM. CLINICAL HISTORY: ARM PAIN,LEFT ELBOW PAIN. COMPARISON: None. TECHNIQUE: 2 views. FINDINGS: Bones: Normal. No fractures or bone lesions. Joints: Spurring along the medial joint space.. No effusion. No subluxation. Soft Tissues: Normal. No soft tissue swelling. IMPRESSION: Mild degenerative changes RADIA
== END 2019-04-22 15:03 | disposition home or self-care (01) ==
LOC: DI 15:02
PROVIDERS: ATTEND Family Medicine
DX: M19.022 Primary osteoarthritis, left elbow (principal)

== ENCOUNTER 2021-02-16 07:44 | Outpatient (CLI) | payer MEDICARE, OTHER | END 2021-02-16 07:45 | disposition home or self-care (01) | LOC: DI 07:44 | PROVIDERS: ATTEND Internal Medicine Cardiovascular Disease | DX: I35.9 Nonrheumatic aortic valve disorder, unspecified (principal) | CPT/HCPCS: 93306 ==

== ENCOUNTER 2022-06-12 08:06 | Outpatient (CLI) | payer MEDICARE, OTHER ==
--- NOTE | 2022-06-12 17:34 | DEXA Report ---
PROCEDURE: Dexa Spine and/or Hip INDICATIONS: POST MENOPAUSAL TECHNIQUE: Dual energy x-ray absorptiometry (DXA) was performed on a [employer] System. Regions measur ed are the AP Spine, femoral neck, and if needed forearm. COMPARISON: DEXA 10/10/2015 FINDINGS: Lumbar Spine: Bone Mineral Density 1.044 g/cm/cm,T score -1.1, compared to -2.0 Left Femoral Neck: Bone Mineral Density 0.611 g/cm/cm, T score -3.1, compared to -2.5 Left Hip: Bone Mineral Density 0.598 g/cm/cm,T score -3.3, compared to -2.1 (T score greater or equal to -1.0: NORMAL) (T score from -1.1 to -2.4: OSTEOPENIA) (T score less than or equal to -2.5 to: OSTEOPOROSIS) Impression: Progressive bone mineral density loss with osteoporosis in the left femoral neck and hip. Mild improv ed bone mineral density lost within the lumbar spine now minimal osteopenia compared to moderate. Patients with diagnosis of osteoporosis or osteopenia should have regular bone mineral density assess ment. For those eligible for Medicare, routine testing is allowed once every 2 years. Testing frequ ency can be increased for patients who have rapidly progressing disease or for those who are receivin g medical therapy to restore bone mass. Reviewed by: Sheree Lazo MD on 06/12/2022 5:33 PM PST Approved by: Sheree Lazo MD on 06/12/2022 5:33 PM PST Station ID: [id number]
== END 2022-06-12 08:07 | disposition home or self-care (01) ==
LOC: DI 08:06
PROVIDERS: ATTEND Internal Medicine
DX: M81.0 Age-related osteoporosis without current pathological fracture (principal); N95.8 Other specified menopausal and perimenopausal disorders

== ENCOUNTER 2023-04-03 08:00 | Outpatient (CLI) | payer MEDICARE, OTHER | END 2023-04-03 08:01 | disposition home or self-care (01) | LOC: LAB.N 08:00 | PROVIDERS: ATTEND Family Medicine | DX: R05.8 Other specified cough (principal) ==

== ENCOUNTER 2023-09-11 08:29 | Emergency (ER) | payer MEDICARE, OTHER ==
[2023-09-11 10:01] LABS: CORONAVIRUS 229E-RESP PCR NOT DETECTED; CORONAVIRUS HKU1-RESP PCR NOT DETECTED; CORONAVIRUS NL63-RESP PCR NOT DETECTED; CORONAVIRUS OC43-RESP PCR NOT DETECTED; HUMAN METAPNEUMOVIRUS NOT DETECTED; RHINOVIRUS/ENTEROVIRUS NOT DETECTED; SARS-CoV-2 -RESP PCR PANEL NOT DETECTED
[2023-09-11 10:02] LABS: B. PARAPERTUSSIS- RESP PCR PAN NOT DETECTED; B. PERTUSSIS- RESP PCR PANEL NOT DETECTED; C. PNEUMONIAE- RESP PCR PANEL NOT DETECTED; INFLUENZA A H3- RESP PCR PANEL DETECTED; INFLUENZA B - RESP PCR PANEL NOT DETECTED; M. PNEUMONIAE- RESP PCR PANEL NOT DETECTED; PARAINFLUENZA VIRUS 1 NOT DETECTED; PARAINFLUENZA VIRUS 2 NOT DETECTED; PARAINFLUENZA VIRUS 3 NOT DETECTED; PARAINFLUENZA VIRUS 4 NOT DETECTED; RSV- RESP PCR PANEL NOT DETECTED
--- NOTE | 2023-09-11 11:40 | ED Physician Documentation ---
PD HPI HEENT - Stated complaint Stated Complaint: CONGESTION,FEVER,SOA - Chief complaint Chief Complaint: Resp - History obtained from History obtained from: Patient - Additional information Additional information: The patient comes to the emergency department chief complaint of bodyaches, fevers, chills, upper respiratory congestion, cough, nausea, and diarrhea for the last several days, ever since attending a wedding where everybody came down same symptoms. Nobody has been tested but they all know that they are sick with similar symptoms. Patient states that she did vomit this morning but otherwise has been able to hold fluids down. She denies any other complaints at this time. 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 : Kidney stones HEENT: Chronic vision loss Psych: None Musculoskeletal: Osteoarthritis Derm: None - Past Surgical History Past Surgical History: Yes /SCHOOL COUNSELOR: Hysterectomy HEENT: Cataracts - Present Medications Home Medications: Ambulatory Orders Medication Instructions Recorded Confirmed Multivitamin [Multiple Vitamins] 1 tab PO DAILY 04/14/18 09/11/23 Calcium Carbonate/Vitamin D3 1 each PO BID #60 tablet 04/17/18 09/11/23 [Calcium 600-Vit D3 800 Tablet] Losartan [Cozaar] 50 mg PO DAILY #10 tablet 08/27/23 09/11/23 Acetaminophen/Cod 300/30 [Tylenol 1 - 2 each PO Q6H PRN #14 tablet 09/11/23 #3] Estradiol [Estrace] 0.5 mg PO DAILY 09/11/23 09/11/23 Ondansetron Odt [Zofran] 4 mg TL Q6H PRN #10 tablet 09/11/23 - Allergies Allergies/Adverse Reactions: Allergies Allergy/AdvReac Type Severity Reaction Status Date / Time No Known Drug Allergies Allergy Verified 09/11/23 08:43 - Social History Does the pt smoke?: No Smoking Status: Never smoker Does the pt drink ETOH?: No Does the pt have substance abuse?: No - Immunizations Immunizations are current?: Yes - POLST Patient has POLST: No POLST Status: Full Code PD ED PE NORMAL - Vitals Vital signs reviewed: Yes - General General: Alert and oriented X 3, No acute distress, Well developed/nourished, Other (Extremely well-appearing patient in no distress.) - HEENT HEENT: Atraumatic, PERRL, Moist mucous membranes, Pharynx benign - Neck Neck: Supple, no meningeal sign - Cardiac Cardiac: RRR, No murmur - Respiratory Respiratory: No respiratory distress, Clear bilaterally - Abdomen Abdomen: Soft, Non tender, Non distended - Derm Derm: Normal color, Warm and dry, No rash - Extremities Extremities: No deformity - Neuro Neuro: Other (No gross deficits, alert and appropriate) - Psych Psych: Normal mood, Normal affect Results - Vitals Vitals: Vital Signs - 24 hr 09/11/23 08:39 Temperature 36.1 C L Heart Rate 88 Respiratory 15 Rate Blood Pressure 150/66 H O2 Saturation 98 Oxygen O2 Source Room air - Labs Labs: Laboratory Tests 09/11/23 08:47 Nasal Adenovirus (PCR) NOT DETECTED Nasal B. parapertussis DNA (PCR) NOT DETECTED Nasal Coronavir 229E PCR NOT DETECTED Nasal Coronavir HKU1 PCR NOT DETECTED Nasal Coronavir NL63 PCR NOT DETECTED Nasal Coronavir OC43 PCR NOT DETECTED Nasal Enterovir/Rhinovir PCR NOT DETECTED Nasal Influenza A H3 PCR DETECTED A Nasal Influenza B PCR NOT DETECTED Nasal Parainfluen 1 PCR NOT DETECTED Nasal Parainfluen 2 PCR NOT DETECTED Nasal Parainfluen 3 PCR NOT DETECTED Nasal Parainfluen 4 PCR NOT DETECTED Nasal RSV (PCR) NOT DETECTED Nasal B.pertussis DNA PCR NOT DETECTED Nasal C.pneumoniae (PCR) NOT DETECTED Nico Human Metapneumo PCR NOT DETECTED Nasal M.pneumoniae (PCR) NOT DETECTED Nasal SARS-CoV-2 (PCR) NOT DETECTED PD Medical Decision Making - ED course Complexity details: reviewed results, re-evaluated patient, considered differential, d/w patient, d/w family ED course: The patient was worked up with a respiratory PCR panel, which showed positive for influenza A. Patient is extremely well-appearing and I discussed with her that this illness will be self-limited. We have discussed symptomatic management at home and I have given her a dose of Zofran here as well as a prescription for the same at home. I discussed why am not going to give her Tamiflu as she is otherwise fairly healthy despite her advanced age and is now several days out from the start of this. We have discussed the usual indications or return. Departure - Departure Disposition: 01 Home, Self Care Clinical Impression: Influenza A Condition: Stable Instructions: ED Flu Prescriptions: Acetaminophen/Cod 300/30 [Tylenol #3] 1 - 2 each PO Q6H PRN #14 tablet PRN Reason: Cough Ondansetron Odt [Zofran] 4 mg TL Q6H PRN #10 tablet PRN Reason: Nausea / Vomiting Comments: Your viral panel was positive for influenza type A, a common virus that causes often a combination of upper respiratory symptoms, fever, and sometimes gastrointestinal symptoms in all age groups. It often lasts for 1 to 2 weeks, though the worst of it is usually the first week. There is no direct treatment most of the time that has been shown to be helpful. In patients who have a compromised immune system or other major medical problems, who seek help within the first couple of days of illness, we can do an antiviral called Tamiflu. However, at best this only shortens the duration of the illness by about 24 hours compared to people who do not take it, and is mainly effective if given within the first 48 hours of onset of illness. As such, it is unlikely to provide any benefit for you. We have given you dose of nausea medicine here in the emergency department and a prescription for the same has been electronically transmitted to the [facility] pharmacy in [place]. You may also take ibuprofen and Tylenol as needed. Other than your meds, for now, just stick with clear liquids as your stomach is probably not ready for regular food yet. When she is gone 24 hours with out vomiting and your nausea feels improved enough, you may take simple foods like Ramen noodles and saltine crackers. If you are able to tolerate these, then you may go ahead and advance your diet from there.
[2023-09-11] MEDS: ONDANSETRON ODT 4 MG TABLET TL STA (11:45)
[2023-09-11 12:18] VITALS: BP 141/67; O2SAT 94
== END 2023-09-11 12:13 | disposition home or self-care (01) ==
LOC: ED 08:29
DX: J10.1 Influenza due to other identified influenza virus with other respiratory manifestations (principal); Z79.899 Other long term (current) drug therapy
CPT/HCPCS: 87633; 99283

== ENCOUNTER 2023-09-18 08:39 | Emergency (ER) | payer MEDICARE, OTHER ==
--- NOTE | 2023-09-18 09:24 | ED Physician Documentation ---
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 HEENT: Chronic vision loss Psych: None Musculoskeletal: Osteoarthritis Derm: None - Past Surgical History Past Surgical History: Yes /LENS GRINDER APPRENTICE: Hysterectomy HEENT: Cataracts - Present Medications Home Medications: Ambulatory Orders Medication Instructions Recorded Confirmed Multivitamin [Multiple Vitamins] 1 tab PO DAILY 04/14/18 09/11/23 Calcium Carbonate/Vitamin D3 1 each PO BID #60 tablet 04/17/18 09/11/23 [Calcium 600-Vit D3 800 Tablet] Losartan [Cozaar] 50 mg PO DAILY #10 tablet 08/27/23 09/11/23 Acetaminophen/Cod 300/30 [Tylenol 1 - 2 each PO Q6H PRN #14 tablet 09/11/23 #3] Estradiol [Estrace] 0.5 mg PO DAILY 09/11/23 09/11/23 Ondansetron Odt [Zofran] 4 mg TL Q6H PRN #10 tablet 09/11/23 Famotidine [Pepcid] 20 mg PO DAILY #20 tablet 09/18/23 Promethazine [Phenergan] 25 mg PO BID #20 tab 09/18/23 dexAMETHasone [Decadron] 4 mg PO DAILY #5 tablet 09/18/23 - Allergies Allergies/Adverse Reactions: Allergies Allergy/AdvReac Type Severity Reaction Status Date / Time No Known Drug Allergies Allergy Verified 09/18/23 09:08 - Social History Does the pt smoke?: No Smoking Status: Never smoker Does the pt drink ETOH?: No Does the pt have substance abuse?: No - Immunizations Immunizations are current?: Yes - POLST Patient has POLST: No POLST Status: Full Code PD ED PE NORMAL - Vitals Vital signs reviewed: Yes - General General: Alert and oriented X 3, Well developed/nourished - HEENT HEENT: Pharynx benign - Neck Neck: Supple, no meningeal sign, No adenopathy - Cardiac Cardiac: RRR, No murmur - Respiratory Respiratory: No respiratory distress, Clear bilaterally - Abdomen Abdomen: Normal bowel sounds, Soft, Non tender Results - Vitals Vitals: Oxygen O2 Source Room air - Labs Labs: Laboratory Tests 09/18/23 09/18/23 09:51 09:51 WBC 3.4 L RBC 4.97 Hgb 13.9 Hct 42.8 MCV 86.1 MCH 28.0 MCHC 32.5 RDW 13.1 Plt Count 188 MPV 10.3 Neut # (Auto) 2.1 Lymph # (Auto) 0.9 L [place] # (Auto) 0.5 Eos # (Auto) 0.0 Baso # (Auto) 0.0 Absolute Nucleated RBC 0.00 Band Neuts % (Manual) Not Reportable Abnorm Lymph % (Manual) Not Reportable Nucleated RBC % 0.0 Neutrophils # (Manual) Not Reportable Lymphocytes # (Manual) Not Reportable Monocytes # (Manual) Not Reportable Eosinophils # (Manual) Not Reportable Basophils # (Manual) Not Reportable Differential Comment MANUAL=AUTO DIFF Platelet Estimate NORMAL (130-450,000) Platelet Morphology NORMAL APPEARANCE RBC Morph Micro Appear NORMAL APPEARANCE Sodium 131 L Potassium 4.6 H Chloride 98 L Carbon Dioxide 28 Anion Gap 5.0 L BUN 14 Creatinine 0.6 Estimated GFR (MDRD) 95 Glucose 109 H Calcium 9.1 Magnesium 1.6 L Total Bilirubin 0.3 AST 29 ALT 14 Alkaline Phosphatase 67 Total Creatine Kinase 45 Total Protein 6.6 Albumin 3.9 Globulin 2.7 Albumin/Globulin Ratio 1.4 Lipase 42 PD Medical Decision Making - ED course Complexity details: considered differential (recent Flu A ith persistent nausea and fatigue. Muscle aches. Presume post viral inflammatory changes still. Can try antinauseants and H2 ronaldo. ), d/w patient Departure - Departure Disposition: 01 Home, Self Care Clinical Impression: Nausea, Post viral syndrome, Influenza A Condition: Stable Record reviewed to determine appropriate education?: Yes Prescriptions: dexAMETHasone [Decadron] 4 mg PO DAILY #5 tablet Famotidine [Pepcid] 20 mg PO DAILY #20 tablet Promethazine [Phenergan] 25 mg PO BID #20 tab Comments: Your basic chemistry blood test did not have any significant abnormalities. Your magnesium level is slightly low so supplement in the short-term can be good but not low enough to account for weakness or your symptoms. I presume you are having general persisting multisystem inflammation related to the recent influenza. Sometimes this can be improved with anti-inflammatory. I wrote a prescription for Decadron daily for a few days. Otherwise the stomach can be irritated from the illness and that can perpetuate. I would suggest some famotidine acid reducing medicine for couple weeks and since the ondansetron/Zofran was not really helping well, I would try a different antinausea and. I wrote for promethazine that you can take twice daily for the next few days and then as needed for the nausea. Tylenol every 4-6 hours if needed for aches. Recheck if not improving well over the next several days to week. Small frequent foods. I sent your prescription to your preferred pharmacy. Forms: PCP List Discharge Date/Time: 09/18/23 10:56
[2023-09-18] MEDS: MAG HYDROX/AL HYDROX/SIMETH 30 ML UDC PO STA (09:58)
[2023-09-18] MEDS: PROMETHAZINE 25 MG TABLET PO STA (09:58)
[2023-09-18] MEDS: ONDANSETRON ODT 4 MG TABLET TL STA (09:58)
[2023-09-18] MEDS: dexAMETHasone 4 MG TABLET PO STA (09:59)
[2023-09-18 10:00] LABS: BASOPHILS % (AUTO) 0.3 %; EOSINOPHILS % (AUTO) 0.3 %; HCT - HEMATOCRIT 42.8 % (37.0-47.0); HGB - HEMOGLOBIN 13.9 g/dL (12.0-16.0); LYMPHOCYTES # (AUTO) 0.9 10^3/uL (1.5-3.5); LYMPHOCYTES % (AUTO) 25.1 %; MEAN CORPUSCULAR HGB CONC 32.5 g/dL (32.0-36.0); MEAN CORPUSCULAR VOLUME 86.1 fL (81.0-99.0); MEAN PLATELET VOLUME 10.3 fL (7.9-10.8); MONOCYTES # (AUTO) 0.5 10^3/uL (0.0-1.0); MONOCYTES % (AUTO) 13.3 %; NEUTROPHILS # (AUTO) 2.1 10^3/uL (1.5-6.6); NEUTROPHILS % (AUTO) 60.7 %; PLT - PLATELET COUNT 188 10^3/uL (130-450); RED BLOOD COUNT 4.97 10^6/uL (4.20-5.40); RED CELL DISTRIBUTION WIDTH 13.1 % (12.0-15.0); WHITE BLOOD COUNT 3.4 x10^3/uL (4.8-10.8)
[2023-09-18 10:12] LABS: ALBUMIN 3.9 g/dL (3.2-5.5); ALBUMIN/GLOBULIN RATIO 1.4 (1.0-2.2); BILIRUBIN,TOTAL 0.3 mg/dL (0.2-1.0); CALCIUM 9.1 mg/dL (8.5-10.3); CREATININE 0.6 mg/dL (0.6-1.3); MAGNESIUM 1.6 mg/dL (1.7-2.3); POTASSIUM 4.6 mmol/L (3.5-4.5); TOTAL PROTEIN 6.6 g/dL (6.4-8.9)
[2023-09-18 10:24] LABS: DIFFERENTIAL COMMENT MANUAL=AUTO DIFF; PLATELET ESTIMATE, MANUAL NORMAL (130-450,000) (NORMAL); PLATELET MORPHOLOGY NORMAL APPEARANCE (NORMAL); RBC MORPHOLOGY (MULTIPLE) NORMAL APPEARANCE (NORMAL)
[2023-09-18 11:05] VITALS: BP 181/53; O2SAT 95
== END 2023-09-18 10:56 | disposition home or self-care (01) ==
LOC: ED 08:39
DX: J10.1 Influenza due to other identified influenza virus with other respiratory manifestations (principal); G93.31 Postviral fatigue syndrome; R11.0 Nausea; Z79.899 Other long term (current) drug therapy
CPT/HCPCS: 36415; 80053; 82550; 83690; 83735; 85025; 99283; A9270; J8540; Q0162; Q0169